=== PATIENT | female | born 1970 | race African-American/Black ===

== ENCOUNTER 2018-01-24 13:02 | Emergency (ER) | payer MEDICAID, SELFPAY ==
[2018-01-24 13:03] VITALS: BP 118/76; PULSE 79; RESP 18; TEMP 36.4; O2SAT 98; BMI 49.0
[2018-01-24 13:57] LABS: Absolute Lymphocyte Count 1.69 X10^3/ul (0.83-4.51); Absolute Neutrophil Count 2.2 X10^3/uL (2.0-7.7); Basophil# 0.01 X10^3/uL; Basophil% 0.2 % (0-1); Eosinophil# 0.04 X10^3/uL; Eosinophils% 0.9 % (0-5); Hematocrit 40.1 % (37-47); Hemoglobin 13.4 g/dl (12.0-15.0); Lymphocyte # 1.69 X10^3/ul (4.0); Lymphocyte % 39.5 % (19-41); Mean Corp Hgb Conc 33.4 g/gl (32-36); Mean Corpuscular Hgb 29.1 pg (27.0-32.0); Mean Corpuscular Volume 87.2 fL (81-99); Mean Platelet Vol. 8.7 fl (6.2-12.0); Monocyte# 0.32 X10^3/uL; Monocyte% 7.5 % (0-10); Neutrophil # 2.22 X10^3/uL (2.7-7.7); Neutrophil % 51.9 % (47-70); Platelet Count 181 K/mm3 (150-450); RBC Distribution Width CV 12.8 % (11.6-14.6); RBC Distribution Width SD 40.9 fl (35.1-43.9); White Blood Count 4.3 K/mm3 (4.4-11.0)
[2018-01-24 13:58] LABS: POSITIVE COUNT NO; POSITIVE DIFFERENTIAL NO; POSITIVE MORPHOLOGY NO
[2018-01-24 14:11] LABS: Anion Gap 8 (5-15); BUN 21 mg/dL (7-18); BUN/Creat Ratio 19.1 RATIO (10-20); Calcium,Total 9.4 mg/dL (8.5-10.1); Chloride 105 mmol/L (98-107); EST Glomerular Filtration Rate 57 mL/min (>60); Est Glom Filt Rate - Afr Amer 69 mL/min (>60); Estimated Creatinine Clearance 46.39 ml/min; Glucose 186 mg/dL (74-106); Sodium Level 139 mmol/L (136-145)
[2018-01-24 14:46] LABS: Mucous, Urine 0 SEEN /hpf (<or=2+); Red Blood Cells-Urine 0 SEEN /hpf (0-5)
[2018-01-24 14:49] LABS: Color, Urine Yellow (Yellow); Glucose, Dipstick Normal (Normal); Ketone-Dipstick Negative (Negative); Leukocyte Esterase-Dipstick 100 /ul (Negative); Nitrite-Dipstick Negative (Negative); Occult Blood-Urine Negative /ul (Negative); Protein-Dipstick 15 mg/dl (Negative); Urine Bilirubin Dipstick Negative (Negative); Urine Clarity Sl. Cloudy (Clear); Urine Urobilinogen Normal (Normal)
[2018-01-24 14:55] LABS: Squamous Epithelial Cells - UA 0-5 SEEN /hpf (5-10); White Blood Cells 0-5 SEEN /hpf (0-5)
[2018-01-24 14:56] LABS: Bacteria RARE /hpf (None Seen)
[2018-01-24 15:02] LABS: Pregnancy, Serum, hCG Quali. NEGATIVE Negative (0-9 Nonpreg)
--- NOTE | 2018-01-24 15:35 | ED.DCSUM_ITS ---
- ER Visit Summary Date of Service: 01/24/18 Chief Complaint: Abdominal cramping History of Present Illness: The patient is a 47 F reports her last regular menstrual cycle was on October 02. Patient states in late October she had very light spotting only. She has had intercourse since that time and is taken to home test were both negative. Patient states she has no overt symptoms of or of menopause. She has noted some abdominal bloating and states that she is currently unable to fit in the jeans that she was wearing previously. She has not followed up with a doctor. Although she complained of abdominal cramping in triage, she tells me that she has had no pain. Physical Examination: Vital signs are unremarkable. Patient sitting upright in bed no acute distress. Heart is regular rate and rhythm. Lung sounds are clear. Abdomen is soft nontender. Active bowel sounds are noted throughout. Back examination reveals no CVA tenderness. Test Results: CBC was a white count of 4.3. Chemistry studies reveal glucose of 186. Creatinine is 1.1. Urinalysis is unremarkable. test is negative. Emergency Department Course and Treatment: Test results were discussed with the patient. At this time I see no evidence of acute abnormalities. She is instructed to follow-up with ANSWERER for further testing. She would prefer to follow-up with [facility] and is therefore referred to Dr. Chan, on-call for [employer] [facility] today. Treatment Plan: [] Disposition: Discharge Impression: Amenorrhea This note was generated with [employer] dictation software. It may contain incorrect words, spelling, and punctuation that were not noted in review of the chart prior to signing ED Disposition - Plan for ED Patient: Disposition: Home or Assisted Living Chief Complaint: Abd Pain Instructions: ED Amenorrhea Referrals: Dave Chan [STAFF PHYSICIAN] - As soon as possible
[2018-01-24 15:52] VITALS: BP 120/74; PULSE 80; RESP 18; O2SAT 98
== END 2018-01-24 15:52 | disposition home or self-care (01) ==
PROVIDERS: Emergency Provider Emergency Medicine; Family Provider Family Medicine
DX: N91.2 Amenorrhea, unspecified (principal); Z86.32 Personal history of gestational diabetes; Z72.0 Tobacco use
CPT/HCPCS: 80048; 81001; 84703; 85025; 99283; A4216

== ENCOUNTER 2023-05-29 10:18 | Emergency (ER) | payer MEDICAID, SELFPAY ==
[2023-05-29 10:19] VITALS: BP 154/85; PULSE 93; RESP 18; TEMP 35.7; O2SAT 99; BMI 40.2
[2023-05-29 11:35] LABS: Absolute Lymphocyte Count 2.08 X10^3/uL (0.83-4.51); Absolute Neutrophil Count 4.7 X10^3/uL (2.0-7.7); Basophil# 0.02 X10^3/uL; Basophil% 0.3 % (0-1); Eosinophil# 0.04 X10^3/uL; Eosinophils% 0.5 % (0-5); Hematocrit 39.8 % (37-47); Hemoglobin 13.1 g/dL (12.0-15.0); Lymphocyte # 2.08 X10^3/ul (0.83-4.51); Lymphocyte % 28.1 % (19-41); Mean Corp Hgb Conc 32.9 g/dL (32-36); Mean Corpuscular Volume 88.1 fL (81-99); Monocyte# 0.54 X10^3/uL; Monocyte% 7.3 % (0-10); NRBC Flagged by Analyzer 0 % (0-5); Neutrophil # 4.72 X10^3/uL (2.7-7.7); Neutrophil % 63.7 % (47-70); Platelet Count 241 K/mm3 (150-450); RBC Distribution Width CV 12.9 % (11.6-14.6); RBC Distribution Width SD 41.3 fl (35.1-43.9); Red Blood Count 4.52 M/mm3 (4.2-5.4); White Blood Count 7.4 K/mm3 (4.4-11.0)
[2023-05-29] MEDS: Ondansetron 4 MG/2 ML Vial IV (11:37)
[2023-05-29] MEDS: Famotidine 20 MG Tablet PO (11:37)
--- NOTE | 2023-05-29 11:40 | EX.ED.DYSGE1 ---
HPI <GARO Esp[place] - Last Filed: 05/29/23 14:50> History of Present Illness Chief Complaint: Nausea/Vomiting Narrative Narrative: Patient presenting today with nausea that she has had intermittently over the past week and a half. She reports that she was struggling with constipation around the same time which seems to have now resolved, she is now having regular bowel movements. She reports that she is also experiencing acid reflux and has been making herself vomit intermittently to try and feel better. She reports that sometimes when she is nauseous she feels a little short of breath but thinks that that is because she is panicking. She denies currently feeling short of breath or having any chest pain. She has not had any fever, chills, abdominal pain, hematemesis, melena/hematochezia, or diarrhea. PMH includes asthma. PFSH <GARO [place] - Last Filed: 05/29/23 14:50> PFSH Home Medications pantoprazole 40 mg tablet,delayed release (Protonix) 40 mg PO DAILY #14 tabs 05/29/23 [Rx Last Taken Unknown] promethazine 12.5 mg tablet 12.5 mg PO TID PRN nausea and vomiting 3 days #10 tabs 05/29/23 [Rx Last Taken Unknown] Allergy/AdvReac Type Severity Reaction Status Date / Time No Known Allergies Allergy Verified 05/29/23 10:21 Social History Smoking Status: Current every day smoker tobacco type: cigarettes ROS <GARO [place] - Last Filed: 05/29/23 14:50> ROS ED Constitutional Constitutional ED: Denies chills or fever(s) Cardiovascular Cardiovascular: Denies chest pain or palpitations Respiratory/Chest Respiratory/Chest: Denies cough or dyspnea Gastrointestinal Gastrointestinal: Reports nausea and vomiting; Denies abdominal pain Genitourinary Genitourinary ED: Denies dysuria, hematuria or urinary urgency Musculoskeletal Musculoskeletal: Denies arthralgias or myalgias Integumentary Denies rash Neurologic Neurologic: Denies weakness EXAM <GARO [place] - Last Filed: 05/29/23 14:50> Physical Exam Const Vital Signs: 05/29/23 10:19 05/29/23 14:10 Temperature 96.2 F L Temperature Source Temporal Pulse Rate 93 82 Respiratory Rate 18 16 Blood Pressure 154/85 H 149/84 H Blood Pressure Mean 108 Pulse Ox 99 98 Oxygen Delivery Method Room Air Positive well nourished, well developed and no apparent distress General Appearance ED: well developed HEENT Reports normocephalic and head/scalp atraumatic Mouth ED: Yes moist mucous membranes normal Eyes PERRL and EOMs intact bilaterally Neck full ROM and supple Chest Wall inspection of chest normal Resp normal respiratory effort and clear to auscultation bilaterally Cardio regular rate and regular rhythm GI soft to palpation, non-tender, non-distended and no masses Back/Spine normal ROM and normal to inspection Extremity normal to inspection and full ROM Neuro oriented x3, CN's II-XII intact bilaterally, moves all extremities, no focal motor deficits and no sensory deficits noted Sensorium / Orientation: awake and alert Psych mental status grossly normal and thought process normal Skin no rashes or lesions noted and no wounds <Dr. Fermín Park MD - Last Filed: 05/29/23 12:47> Physical Exam Const Vital Signs: 05/29/23 10:19 05/29/23 14:10 Temperature 96.2 F L Temperature Source Temporal Pulse Rate 93 82 Respiratory Rate 18 16 Blood Pressure 154/85 H 149/84 H Blood Pressure Mean 108 Pulse Ox 99 98 Oxygen Delivery Method Room Air MDM <GARO [place] - Last Filed: 05/29/23 14:50> [facility] Narrative Medical decision making narrative: Patient presenting today due to intermittent nausea and gastric reflux that she has had over the past week and a half. She is well-appearing and in no acute distress, vitals are unremarkable. She has been taking Zofran with little relief of her symptoms. I think a lot of patient's symptoms could be attributed to her gastric reflux, she reports that she has been burping a lot as well. Labs obtained, potassium 3.4, creatinine 1.26, GFR 58, glucose 164. She does not have a PCP, I will give her a referral for one. She was given Zofran, Pepcid, and Protonix here and reports improvement of her symptoms. She will be given a prescription for Protonix and Phenergan. She will be discharged home in stable condition and is comfortable with plan. She is to follow-up with PCP. I have personally performed a face to face assessment of the patient and have reviewed the YG Note. I performed a substantive portion of the visit including all aspects of the following. My villavicencio findings include: History: Patient presents with a primary complaint of nausea. She states that seem to start when she was constipated couple weeks ago. She is taken some meds and that seems better. She states she just seems nauseated all the time. She does vomit but she states really the only time she vomits is when she puts her finger down her throat trying to make herself vomit to get the nausea better. She is not having abdominal pain. She has never brought up any blood. No blood in the stool. No back or flank pain. No urinary symptoms. She states she was seen at urgent care and started on Zofran. It helps but does not fully take away the symptoms. She also notes that she does have reflux symptoms but sounds like she is not on any meds for that. Exam: Patient awake alert no acute distress. Mucous membranes still look moist. Lungs are clear. No sign of wheezing now. Heart is regular. Abdomen is obese but otherwise benign. I am not getting any tenderness. No mass. She has no CVA tenderness. Medical Decision Making: Patient will be given meds. Basic blood work will be checked. It sounds like patient has not seen a primary doctor in a long time. She has a history of gestational diabetes but was never diagnosed with diabetes. Lab Data Labs: Laboratory Results - last 24 hr 05/29/23 10:50 WBC 7.4 RBC 4.52 Hgb 13.1 Hct 39.8 MCV 88.1 MCH 29.0 MCHC 32.9 RDW Std Deviation 41.3 RDW Coeff of Sanya 12.9 Plt Count 241 MPV 10.0 Immature Gran % (Auto) 0.100 Neut % (Auto) 63.7 Lymph % (Auto) 28.1 Drew % (Auto) 7.3 Eos % (Auto) 0.5 Baso % (Auto) 0.3 Absolute Neuts (auto) 4.7 Absolute Lymphs (auto) 2.08 Nucleated RBC % 0 Sodium 137 Potassium 3.4 L Chloride 102 Carbon Dioxide 28.0 Anion Gap 7 BUN 14 Creatinine 1.26 H Estim Creat Clear Calc 37.94 Est GFR (MDRD) Af Amer 58 L Est GFR (MDRD) Non-Af 48 L BUN/Creatinine Ratio 11.1 Glucose 164 H Calcium 9.3 Lipase 23 <Dr. Fermín Park MD - Last Filed: 05/29/23 12:47> [facility] Narrative Medical decision making narrative: I have personally performed a face to face assessment of the patient and have reviewed the YG Note. I performed a substantive portion of the visit including all aspects of the following. My villavicencio findings include: History: Patient presents with a primary complaint of nausea. She states that seem to start when she was constipated couple weeks ago. She is taken some meds and that seems better. She states she just seems nauseated all the time. She does vomit but she states really the only time she vomits is when she puts her finger down her throat trying to make herself vomit to get the nausea better. She is not having abdominal pain. She has never brought up any blood. No blood in the stool. No back or flank pain. No urinary symptoms. She states she was seen at urgent care and started on Zofran. It helps but does not fully take away the symptoms. She also notes that she does have reflux symptoms but sounds like she is not on any meds for that. Exam: Patient awake alert no acute distress. Mucous membranes still look moist. Lungs are clear. No sign of wheezing now. Heart is regular. Abdomen is obese but otherwise benign. I am not getting any tenderness. No mass. She has no CVA tenderness. Medical Decision Making: Patient will be given meds. Basic blood work will be checked. It sounds like patient has not seen a primary doctor in a long time. She has a history of gestational diabetes but was never diagnosed with diabetes. Lab Data Attestation: I reviewed the patient's lab results. Labs: Laboratory Results - last 24 hr 05/29/23 10:50 WBC 7.4 RBC 4.52 Hgb 13.1 Hct 39.8 MCV 88.1 MCH 29.0 MCHC 32.9 RDW Std Deviation 41.3 RDW Coeff of Sanya 12.9 Plt Count 241 MPV 10.0 Immature Gran % (Auto) 0.100 Neut % (Auto) 63.7 Lymph % (Auto) 28.1 Drew % (Auto) 7.3 Eos % (Auto) 0.5 Baso % (Auto) 0.3 Absolute Neuts (auto) 4.7 Absolute Lymphs (auto) 2.08 Nucleated RBC % 0 Sodium 137 Potassium 3.4 L Chloride 102 Carbon Dioxide 28.0 Anion Gap 7 BUN 14 Creatinine 1.26 H Estim Creat Clear Calc 37.94 Est GFR (MDRD) Af Amer 58 L Est GFR (MDRD) Non-Af 48 L BUN/Creatinine Ratio 11.1 Glucose 164 H Calcium 9.3 Lipase 23 Discharge Plan Triage Chief Complaint: Nausea/Vomiting ED Midlevel Provider: Marge Moore ED Provider: Fermín Park Dx/Rx/DC Orders Clinical Impression: Acid reflux, Nausea & vomiting Instructions: ED GERD (Adult), ED Vomiting (Adult) Prescriptions: New promethazine 12.5 mg tablet 12.5 mg PO TID PRN (Reason: nausea and vomiting) 3 Days Qty: 10 0RF Rx Instructions: 3 doses during day; last dose no later than 4 hr before bedtime pantoprazole [Protonix] 40 mg tablet,delayed release (DR/EC) 40 mg PO DAILY Qty: 14 0RF Primary Care Provider: Care Physician,No Primary Referrals: Sven Moran MD [Med Staff - [employer]] - 5-7 Days Care Physician,No Primary [Primary Care Provider] - Activity Restrictions/Additional Instructions: Please follow-up with the PCP I have referred you to, return for any worsening of your symptoms. Disposition Disposition: Home, Self Care Discharge Date/Time: 05/29/23 14:23
[2023-05-29 11:48] LABS: Anion Gap 7 (5-15); BUN 14 mg/dL (7-18); BUN/Creat Ratio 11.1 RATIO (10-20); Calcium,Total 9.3 mg/dL (8.5-10.1); Chloride 102 mmol/L (98-107); Creatinine, Serum 1.26 mg/dL (0.55-1.02); EST Glomerular Filtration Rate 48 mL/min (>60); Est Glom Filt Rate - Afr Amer 58 mL/min (>60); Estimated Creatinine Clearance 37.94 ml/min; Glucose 164 mg/dL (74-106); Lipase 23 U/L (13-75); Potassium 3.4 mmol/L (3.5-5.1); Sodium Level 137 mmol/L (136-145)
[2023-05-29] MEDS: Pantoprazole Sodium 40 MG Tablet PO (14:09)
[2023-05-29 14:10] VITALS: BP 149/84; PULSE 82; RESP 16; O2SAT 98
== END 2023-05-29 14:23 | disposition home or self-care (01) ==
PROVIDERS: Physician Assistant; Emergency Provider Emergency Medicine; Visit Provider Emergency Medicine
DX: K21.9 Gastro-esophageal reflux disease without esophagitis (principal); F17.210 Nicotine dependence, cigarettes, uncomplicated; R11.2 Nausea with vomiting, unspecified; Z79.899 Other long term (current) drug therapy
CPT/HCPCS: 80048; 83690; 85025; 96374; 99284; A4216; J2405

== ENCOUNTER 2023-07-28 23:02 | Emergency (ER) | payer MEDICAID, SELFPAY ==
[2023-07-28 23:03] VITALS: BP 130/95; PULSE 105; RESP 16; TEMP 36.2; O2SAT 98; BMI 38.0
--- NOTE | 2023-07-28 23:49 | EKG12_ITS ---
Test Reason : Blood Pressure : / mmHG Vent. Rate : 073 BPM Atrial Rate : 073 BPM P-R Int : 140 ms QRS Dur : 074 ms QT Int : 294 ms P-R-T Axes : 039 016 024 degrees QTc Int : 323 ms Normal sinus rhythm with sinus arrhythmia Nonspecific T wave abnormality Abnormal ECG Confirmed by MARICEL ACOSTA, HEAVEN ([id number]), copy editor JÚNIOR RUBY ([id number]) on 07/29/2023 9:37:59 AM Referred By: Confirmed By:HEAVEN CONNELLY MD
--- NOTE | 2023-07-28 23:51 | EDS_ITS ---
HPI History of Present Illness Chief Complaint: Nausea/Vomiting Informant: patient Narrative Narrative: Patient states that her GERD is coming back. She was seen here but 2 months ago for this. I actually saw her at the time. She states when she left she was do ing great. She had mild nausea off and on for the next couple days after that but the meds really helped. Her symptoms had gone away completely. She was on pantoprazole for about 2 weeks. And she has been doing well until about a week and a half ago. She then noticed that she started to get nausea after eating. She would get a little bit of spitting up. She states she has no abdominal or epigastric pain with this. She feels a little soreness in the left lower back. But she states that is related to motion. She thinks that is just a sore back. She states when her GERD acts up she stands and walks a lot more and thinks this irritated the back. She has no history of pancreatitis. No history of problems urinating dysuria or frequency recently. No fevers or chills. Only abdominal surgery is a section 11 years ago. She has tried to get into a primary physician but she is a new patient and she is still waiting for an appointment after she turned in all her paperwork. Currently she is on no medications at all. She states when she eats she gets some discomfort in the mid chest. She occasionally has some taste of acid in her mouth. But her biggest complaint is that it causes nausea. PFSH PFS Home Medications pantoprazole 40 mg tablet,delayed release (Protonix) 40 mg PO DAILY #14 tabs 05/29/23 [Rx Last Taken Unknown] promethazine 12.5 mg tablet 12.5 mg PO TID PRN nausea and vomiting 3 days #10 tabs 05/29/23 [Rx Last Taken Unknown] pantoprazole 40 mg tablet,delayed release 40 mg PO DAILY #30 tabs 07/29/23 [Rx Last Taken Unknown] promethazine 25 mg tablet 25 mg PO Q6H PRN PRN Nausea #10 TABLETS 07/29/23 [Rx Last Taken Unknown] Allergy/AdvReac Type Severity Reaction Status Date / Time No Known Allergies Allergy Verified 07/28/23 23:03 Social History Smoking Status: Current every day smoker tobacco type: cigarettes ROS ROS ED ROS Narrative A complete review of systems was performed and is negative except as documented in the history of present illness. Some specific details below. Constitutional: No recent fevers or chills. No malaise. EYE: No visual complaints or pain. No change in eye color ENT: No difficulty swallowing. But she does get some acid reflux. CV: No chest pain or palpitations. Respiratory: No dyspnea. No hemoptysis. No difficulty taking breaths. GI: Please see history of present illness. : No frequency dysuria or hematuria. Musculoskeletal: No recent trauma. No pains other than the left lower back as in history of present illness. Skin: No rash. Nondiaphoretic. Neuro: No weakness or numbness. No radicular symptoms Endocrine: No polyuria or polydipsia. EXAM Physical Exam Narrative Exam Narrative: CONSTITUTIONAL: Patient is nontoxic in appearance. The patient looks comfortable. HEENT: No notable trauma. Mucous membranes moist. No sinus tenderness. No indication of pain with swallowing. EYES: No conjunctival injection. No proptosis. No icterus. CARDIOVASCULAR: Regular rate. Regular rhythm. No notable murmur. No JVD. RESPIRATORY: No respiratory distress. Breathing is unlabored. No wheezes. No rhonchi. No rales. No pain with a deep breath. GASTROINTESTINAL: Not distended. Bowel sounds are normal. No tenderness. No guarding. No rebound. No palpable mass. No bruit. Patient states her stomach does not hurt at all and pressing on it does not hurt. Overall it is a very benign exam. GENITOURINARY: No tenderness over the bladder. No CVA tenderness. MUSCULOSKELETAL: Atraumatic. No peripheral edema. She does have some mild left paraspinal tenderness at the L3-L5 area. No skin changes. Of note, the patient has not been taking nonsteroidals for this. NEUROLOGICAL: Patient is alert and appropriate. No focal deficit noted. SKIN: No noted rashes. No diaphoresis. PSYCHIATRIC: Patient is calm. Mood is appropriate. Const Vital Signs: 07/28/23 23:03 Temperature 97.2 F L Temperature Source Temporal Pulse Rate 105 H Respiratory Rate 16 Blood Pressure 130/95 H Blood Pressure Mean 106 Pulse Ox 98 Oxygen Delivery Method Room Air MDM MDM MDM Narrative Medical decision making narrative: Patient CBC is normal. Patient's electrolytes do show elevated creatinine at 2.2. This is above her baseline. But she admits she has not been drinking because it causes nausea every time she does. Potassium was just slightly low. This should self- correct. Glucose was also bit up at 147. Liver function tests were normal. Patient's lipase was normal. I went and checked the patient. She states she is feeling much better again. I will get her back on Protonix which worked very well for her. I will write her for a few Phenergan. She will be following up with her primary physician. We discussed reasons to return also. Lab Data Attestation: I reviewed the patient's lab results. Labs: Laboratory Results - last 24 hr 07/29/23 00:07 WBC 5.4 RBC 4.54 Hgb 13.0 Hct 39.1 MCV 86.1 MCH 28.6 MCHC 33.2 RDW Std Deviation 39.9 RDW Coeff of Sanya 12.7 Plt Count 250 MPV 9.6 Immature Gran % (Auto) 0.600 Neut % (Auto) 52.6 Lymph % (Auto) 37.3 Mcminn % (Auto) 7.6 Eos % (Auto) 1.5 Baso % (Auto) 0.4 Absolute Neuts (auto) 2.9 Absolute Lymphs (auto) 2.02 Nucleated RBC % 0 Sodium 138 Potassium 3.3 L Chloride 105 Carbon Dioxide 24.0 Anion Gap 9 BUN 25 H Creatinine 2.20 H Estim Creat Clear Calc 21.73 Est GFR (MDRD) Af Amer 30 L Est GFR (MDRD) Non-Af 25 L BUN/Creatinine Ratio 11.4 Glucose 147 H Calcium 9.5 Total Bilirubin 0.70 AST 16 ALT 24 Alkaline Phosphatase 69 Total Protein 7.8 Albumin 3.9 Globulin 3.9 Albumin/Globulin Ratio 1.0 Lipase 20 EKG Initial EKG: Comments: My independent interpretation of the patient's EKG shows a normal sinus rhythm with overall rate of 73. Mild nonspecific ST-T wave changes. But no sign of acute ST elevation or depression. No ectopy. TN interval, QRS duration and QTc are all normal. Discharge Plan Triage Chief Complaint: Nausea/Vomiting ED Provider: Fermín Park Dx/Rx/DC Orders Clinical Impression: Gastroesophageal reflux disease Instructions: ED GERD (Adult) Prescriptions: New pantoprazole 40 mg tablet,delayed release (DR/EC) 40 mg PO DAILY Qty: 30 1RF promethazine [promethazine] 25 mg tablet 25 mg PO Q6H PRN PRN (Reason: Nausea) Qty: 10 0RF No Action promethazine 12.5 mg tablet 12.5 mg PO TID PRN (Reason: nausea and vomiting) 3 Days Qty: 10 0RF Rx Instructions: 3 doses during day; last dose no later than 4 hr before bedtime pantoprazole [Protonix] 40 mg tablet,delayed release (DR/EC) 40 mg PO DAILY Qty: 14 0RF Primary Care Provider: Care Physician,No Primary Referrals: Care Physician,No Primary [Primary Care Provider] - Activity Restrictions/Additional Instructions: Follow-up with your primary physician as planned. Disposition Disposition: Home, Self Care
[2023-07-29] MEDS: 0.9% Normal Saline (1000mL) 1,000 ML 1000 ML IV (00:14)
[2023-07-29] MEDS: Ondansetron 4 MG/2 ML Vial IV ×2 (00:16→05:11)
[2023-07-29] MEDS: Pantoprazole Sodium 80 MG in 0.9% Normal Saline (50mL Bag) 15 ML 420 MG IV BOLUS (00:16)
[2023-07-29 00:30] LABS: Absolute Lymphocyte Count 2.02 X10^3/uL (0.83-4.51); Absolute Neutrophil Count 2.9 X10^3/uL (2.0-7.7); Basophil# 0.02 X10^3/uL; Basophil% 0.4 % (0-1); Eosinophil# 0.08 X10^3/uL; Eosinophils% 1.5 % (0-5); Hematocrit 39.1 % (37-47); Lymphocyte # 2.02 X10^3/ul (0.83-4.51); Lymphocyte % 37.3 % (19-41); Mean Corp Hgb Conc 33.2 g/dL (32-36); Mean Corpuscular Hgb 28.6 pg (27.0-32.0); Mean Corpuscular Volume 86.1 fL (81-99); Mean Platelet Vol. 9.6 fl (6.2-12.0); Monocyte# 0.41 X10^3/uL; Monocyte% 7.6 % (0-10); NRBC Flagged by Analyzer 0 % (0-5); Neutrophil # 2.86 X10^3/uL (2.7-7.7); Neutrophil % 52.6 % (47-70); Platelet Count 250 K/mm3 (150-450); RBC Distribution Width CV 12.7 % (11.6-14.6); RBC Distribution Width SD 39.9 fl (35.1-43.9); Red Blood Count 4.54 M/mm3 (4.2-5.4); White Blood Count 5.4 K/mm3 (4.4-11.0)
[2023-07-29 00:39] LABS: AST(SGOT) 16 U/L (15-37); Alanine Aminotransfer ALT/SGPT 24 U/L (13-56); Albumin, Serum 3.9 g/dL (3.2-5.0); Alkaline Phosphatase 69 U/L (45-117); Anion Gap 9 (5-15); BUN 25 mg/dL (7-18); BUN/Creat Ratio 11.4 RATIO (10-20); Calcium,Total 9.5 mg/dL (8.5-10.1); Chloride 105 mmol/L (98-107); EST Glomerular Filtration Rate 25 mL/min (>60); Est Glom Filt Rate - Afr Amer 30 mL/min (>60); Estimated Creatinine Clearance 21.73 ml/min; Globulin 3.9 g/dL (2.2-4.2); Glucose 147 mg/dL (74-106); Lipase 20 U/L (13-75); Potassium 3.3 mmol/L (3.5-5.1); Protein, Total 7.8 g/dL (6.4-8.2); Sodium Level 138 mmol/L (136-145)
[2023-07-29 02:23] VITALS: BP 145/78
[2023-07-29] MEDS: proMETHazine 25 MG/ML Syringe 12.5 MG IM (02:25)
--- NOTE | 2023-07-29 02:27 | ED.RN ---
pt was up to bathroom to void, pt then back to bed c/o gonna pass out pt hyperventilating and instructed to slow breathing, pt bp 145/78,respirations 28, pt rocking back and forth in bed and groaning. pt medicated with phenergan 12.5 mg i.m.
--- NOTE | 2023-07-29 02:56 | CT_ITS ---
EXAM: CT abdomen and pelvis without contrast HISTORY: Recurrent nausea vomiting TECHNIQUE: No intravenous contrast. A radiation dose optimization technique was used for this scan. COMPARISON: None. LIMITATIONS: None. LOWER CHEST: Normal. LIVER: Normal. GALLBLADDER: Normal. BILE DUCTS: Normal. PANCREAS: Normal. SPLEEN: Normal. ADRENAL GLANDS: Normal. KIDNEYS/URETERS/BLADDER: Right pelvic kidney. No obstructing stones or hydronephrosis. AORTA: Normal caliber. BOWEL/MESENTERY: No small bowel obstruction. No evidence of colitis. APPENDIX: Normal. PERITONEUM: Normal. REPRODUCTIVE ORGANS: Normal. BONES/SOFT TISSUES: No acute fracture. OTHER: None. CONCLUSION: No small bowel obstruction. Pelvic kidney. Electronically Signed: Nacho Dominguez MD at 4:05 EST , CT/Abdomen/Pelvis without Cont IMPRESSION: undefined
[2023-07-29] MEDS: 0.9% Normal Saline (1000mL) 1,000 ML 999 ML IV (03:47)
[2023-07-29 05:16] VITALS: BP 152/78
[2023-07-29 05:17] VITALS: BP 152/78
== END 2023-07-29 05:18 | disposition home or self-care (01) ==
PROVIDERS: Emergency Provider Emergency Medicine; Visit Provider Emergency Medicine
DX: K21.9 Gastro-esophageal reflux disease without esophagitis (principal); F17.210 Nicotine dependence, cigarettes, uncomplicated; Z79.899 Other long term (current) drug therapy
CPT/HCPCS: 74176; 80053; 83690; 85025; 93005; 96361; 96365; 96366; 96372; 96375; 99283; J7030; A4216; J2405; J3490

== ENCOUNTER 2023-09-25 21:08 | Emergency (ER) | payer MEDICAID, SELFPAY ==
[2023-09-25 21:10] VITALS: BP 121/103; PULSE 76; RESP 18; TEMP 36.3; O2SAT 100; BMI 35.4
--- NOTE | 2023-09-25 21:42 | EX.ED.VIS.EY ---
HPI History of Present Illness Chief Complaint: Eye Problem Informant: patient Narrative Narrative: 53-year-old female presenting to the emergency room with a chief complaint of acid reflux. Patient states that in May she states she was diagnosed with acid reflux and was started on pantoprazole. This was through the emergency department and she subsequently came back to the emergency department when she had run out of her pantoprazole noting that her symptoms have returned. Patient states that she does pretty good for about the first week to 2 weeks after running out of the medication then she gets nausea which makes her woozy. She notes difficulty with some foods. Dyspepsia. She has been trying to get into a primary care doctor's office and is on the new patient list. She also notes that her right eyelid appears swollen and wonders if she has an allergy. She denies any vision changes. No drainage from the eye. [facility] Medical History (Updated 09/25/23 @ 22:[address] Alejandro Burch DO) Chronic GERD Home Medications pantoprazole 40 mg tablet,delayed release (Protonix) 40 mg PO DAILY #14 tabs 05/29/23 [Rx Last Taken Unknown] promethazine 12.5 mg tablet 12.5 mg PO TID PRN nausea and vomiting 3 days #10 tabs 05/29/23 [Rx Last Taken Unknown] pantoprazole 40 mg tablet,delayed release 40 mg PO DAILY #30 tabs 07/29/23 [Rx Last Taken Unknown] promethazine 25 mg tablet 25 mg PO Q6H PRN PRN Nausea #10 TABLETS 07/29/23 [Rx Last Taken Unknown] ondansetron 4 mg disintegrating tablet 4 mg PO Q6H PRN PRN Nausea #15 tabs 09/25/23 [Rx Last Taken Unknown] pantoprazole 40 mg tablet,delayed release 40 mg PO DAILY #30 tabs 09/25/23 [Rx Last Taken Unknown] Allergy/AdvReac Type Severity Reaction Status Date / Time No Known Allergies Allergy Verified 09/25/23 21:10 Social History Smoking Status: Current every day smoker tobacco type: cigarettes ROS ROS ED Constitutional Constitutional ED: Denies chills, fever(s) or weight loss Eyes Eyes: Reports other Details: Left eyelid swelling ; Denies blurry vision, change in vision or diplopia ENT ENT ED: Denies ear pain, rhinorrhea or sore throat Cardiovascular Cardiovascular: Denies chest pain, orthopnea, palpitations or racing heartbeat Respiratory/Chest Respiratory/Chest: Denies cough, dyspnea or orthopnea Gastrointestinal Gastrointestinal: Reports abdominal pain and nausea; Denies diarrhea or vomiting Genitourinary Genitourinary ED: Denies dysuria, hematuria or urinary frequency Musculoskeletal Musculoskeletal: Denies arthralgias or myalgias Integumentary Denies abscess or rash Neurologic Neurologic: Denies headache(s) or weakness Psychiatric Psychiatric: Denies anxiety, depression, suicidal ideation or suicidal thoughts Endocrine Endocrinology: Denies polydipsia, polyphagia or polyuria Allergic/Immunologic Allergic/Immunologic ED: Denies mouth swelling, tongue swelling or urticaria EXAM Physical Exam Const Vital Signs: 09/25/23 21:10 Temperature 97.3 F L Temperature Source Temporal Pulse Rate 76 Respiratory Rate 18 Blood Pressure 121/103 H Blood Pressure Mean 109 Pulse Ox 100 Positive well nourished and well developed General Appearance ED: well developed HEENT Reports normocephalic, head/scalp atraumatic and moist mucous membranes Eyes PERRL and EOMs intact bilaterally Eyes Narrative: Patient has a very obvious stye on the lid margin of the left upper medial lid. The upper lid itself is slightly edematous and mild the erythematous. The conjunctiva is not injected. I do not appreciate any crusting of the eyelids. No hyphema. Neck no lymphadenopathy, supple and no JVD Resp normal respiratory effort and clear to auscultation bilaterally Cardio regular rate, regular rhythm and no murmurs GI normal to inspection, nondistended, normoactive bowel sounds and non-tender Palpation: soft Back/Spine no CVA tenderness and normal ROM Extremity normal to inspection General Extremety ED: Negative for edema General Extremity: Negative for edema Neuro oriented x3 and CN's II-XII intact bilaterally Sensorium / Orientation: alert Motor Exam: strength 5/5 throughout Psych mental status grossly normal Mood & Affect: Negative for depressed or tearful Skin no rashes or lesions noted and no wounds MDM MDM MDM Narrative Medical decision making narrative: For the stye the patient was instructed on warm compresses gentle massage and some erythromycin ophthalmic ointment. I do not feel strongly that erythromycin ophthalmic ointment is needed but she would like to try it and it may help soften the area and allow for some expression of pus. She was given return instructions regarding periorbital cellulitis and worsening symptoms. She notes understanding. As far as the reflux the patient will be started back on her pantoprazole. I will write for some Zofran for the nausea. She should continue to try to get in with primary care History & Record Review Discussion w/independent historian: Patient Additional record(s) reviewed:: Prior ED visit Discharge Plan Triage Chief Complaint: Eye Problem Other Complaint: General Illness ED Provider: Alejandro Burch Dx/Rx/DC Orders Clinical Impression: Medication refill, Stye, Chronic GERD, Nausea Instructions: What Is GERD?, ED Stye Prescriptions: New pantoprazole 40 mg tablet,delayed release (DR/EC) 40 mg PO DAILY Qty: 30 1RF ondansetron [ondansetron] 4 mg tablet,disintegrating 4 mg PO Q6H PRN PRN (Reason: Nausea) Qty: 15 0RF No Action pantoprazole 40 mg tablet,delayed release (DR/EC) 40 mg PO DAILY Qty: 30 1RF promethazine [promethazine] 25 mg tablet 25 mg PO Q6H PRN PRN (Reason: Nausea) Qty: 10 0RF promethazine 12.5 mg tablet 12.5 mg PO TID PRN (Reason: nausea and vomiting) 3 Days Qty: 10 0RF Rx Instructions: 3 doses during day; last dose no later than 4 hr before bedtime pantoprazole [Protonix] 40 mg tablet,delayed release (DR/EC) 40 mg PO DAILY Qty: 14 0RF Primary Care Provider: Care Physician,No Primary Referrals: Care Physician,No Primary [Primary Care Provider] - Activity Restrictions/Additional Instructions: Continue to try to follow-up with your new primary care doctor. Erythromycin eye ointment is to be applied to the inner lower lid 4 times a day for the next 7 days. Use warm compresses for the left eye. Monitor for redness changes in vision. Disposition Disposition: Home, Self Care Discharge Date/Time: 09/25/23 21:53
--- OUTSIDE RECORDS SUMMARY | 2023-09-25 21:44 | XMS RPT_ITS | CCD ---
Author Name Unknown Address [address] [place] [address] Organization [facility] Care Team Providers Care Dry Plasterer Name Role Phone Unavailable Primary Care Provider AIDAN Church Referring Unavailable Medications Current Medications Medication Drug Class(es) Dates Sig (Normalized) Sig (Original) ondansetron 4 mg disintegrating oral tablet (1 source) Serotonin-3 Receptor Antagonist Start: 05-24-2023 End: 05-31-2023 take 1 tablet by mouth every six hours as needed for nausea and nausea ondansetron orally disintegrating (ZOFRAN ODT) 4 mg disintegrating tablet Indications: Nausea Take 1 tablet by mouth every 6 hours as needed for nausea/vomiting for up to 7 days. 28 tablet 0 05/24/2023 05/31/2023 Active Completed/Discontinued Medications Medication Drug Class(es) Dates Sig (Normalized) Sig (Original) [id number] 200 actuat albuterol 0.09 mg/actuat metered dose inhaler (1 source) beta2-Adrenergic Agonist Start: 01-19-2019 take 2 puff(s) by inhalation every six hours as needed albuterol HFA (PROVENTIL HFA, VENTOLIN HFA) 90 mcg/actuation inhaler Indications: Bronchitis Inhale 2 Puffs as instructed every 6 hours as needed. 1 Inhaler 0 01/19/2019 Active Problems Active Problems Problem Classification Problem Date Documented Da te Episodic/Chronic Nausea and vomiting (1 source) Nausea; Translations: [Nausea] 05-24-2023 Episodic Other complications of (1 source) Maternal obesity complicating , childbirth and the puerperium, antepartum; Translations: [Obesity complicating , unspecified trimester] Onset: 10-25-2011 10-25-2011 Chronic Other gastrointestinal disorders (1 source) Acute constipation; Translations: [Constipation, unspecified] 05-24-2023 Episodic Other gastrointestinal disorders (1 source) Constipation, unspecified; Translations: [Acute constipation] Onset: 05-24-2023 Episodic Past or Other Problems Problem Classification Problem Date Documented Da te Episodic/Chronic Diabetes or abnormal glucose tolerance complicating ; childbirth; or the puerperium (1 source) Gestational diabetes mellitus; Translations: [Gestational diabetes mellitus in , unspecified control] Onset: 10-25-2011 10-25-2011 Episodic Other complications of (1 source) Supervision of other high risk pregnancies, unspecified trimester; Translations: [Supervision of other high-risk ] Onset: 10-25-2011 10-25-2011 Episodic Results Test Name Value Interpretation Reference Range Facil ity Vital Signs Date Time Vital Sign Value Performing Clinician Lyly gomez 05-24-2023 11:45-0400 Body temperature 97.59 [degF] Aidan Mcclelland APRN.COMPENSATION PROGRAMS MANAGER Work Phone: [facility] 05-24-2023 11:45-0400 Body weight 94.71 kg Aidan Mcclelland APRN.COMPENSATION PROGRAMS MANAGER Work Phone: [facility] 05-24-2023 11:45-0400 Diastolic blood pressure 84 mm[Hg] Aidan Mcclelland APRN.COMPENSATION PROGRAMS MANAGER Work Phone: [facility] 05-24-2023 11:45-0400 Heart rate 70 /min Aidan Mcclelland APRN.COMPENSATION PROGRAMS MANAGER Work Phone: [facility] 05-24-2023 11:45-0400 Respiratory rate 18 /min Aidan Mcclelland APRN.COMPENSATION PROGRAMS MANAGER Work Phone: [facility] 05-24-2023 11:45-0400 SaO2% (BldA) [Mass fraction] 96 % Aidan Mcclelland APRN.COMPENSATION PROGRAMS MANAGER Work Phone: [facility] 05-24-2023 11:45-0400 Systolic blood pressure 127 mm[Hg] Aidan Mcclelland APRN.COMPENSATION PROGRAMS MANAGER Work Phone: [facility] Encounters Encounter Date Encounter Type Care Provider Facility Start: 05-24-2023 End: 05-24-2023 ambulatory AIDAN MCCLELLAND Facility:[facility] Start: 05-24-2023 End: 05-24-2023 Patient encounter procedure Aidan Mcclelland APRN.CNP Work Phone: [facility] Plan of Treatment Date Care Activity Detail Author Start: 04-29-2023 Influenza vaccination Influenza Vacc ine (#1) [facility] Start: 08-29-2022 Depression Assessment Depression Ass essment [facility] Start: 2022 Shingrix Vaccine (1 of 2) Shingrix V accine (1 of 2) [facility] Start: 2017 Cologuard (FIT-DNA) Cologuard (FIT-D NA) [facility] Start: 2017 Colonoscopy Colonoscopy [facility] Start: 2017 Colorectal Cancer Screening Colorectal Cancer Screening [facility] Start: [address] COLONOGRAPHY [facility] Start: 2017 Diabetes Screening Diabetes Screenin g [facility] Start: 2017 Fecal Occult Blood Fecal Occult Bloo d [facility] Start: 2017 Lipid 1996 panel - S mickey or Plasma Lipid Screening [facility] Start: 2017 SIGMOIDOSCOPY SIGMOIDOSCOPY [facility] Start: 05-07-2016 Pap Testing Pap Testing [facility] Start: 2012 Mammography Mammogram Screening [facility] Start: 2002 HPV Testing HPV Testing [facility] Start: 08-10-1999 Urine microalbumin profile DTa P,Tdap,Td Vaccine (6 - Tdap) [facility] Start: 1990 Hepatitis C Screening Hepatitis C Sc reening [facility] Start: 1978 Pneumococcal vaccination Pneum ococcal Vaccine (1 - PCV) [facility] Start: 1972 Covid-19 Vaccine (#1) Covid-19 Vacci ne (#1) [facility] Start: 1972 Hepatitis B Vaccine (1 of 3 - 3-dose series) Hepatitis B Vaccine (1 of 3 - 3-dose series) [facility] Immunizations Immunization Date Immunization Notes Care Provider Julia de leon 08-10-1989 diphtheria and tetan us toxoids, adsorbed for pediatric use Aidan Mcclelland APRN.CNP Work Phone: [facility] 08-10-1989 trivalent poliovirus vaccine, live, oral Aidan Dustin WIRELESS TECHNICIAN.COMPENSATION PROGRAMS MANAGER Work Phone: [facility] 05-31-1984 measles, mumps and rubella virus vaccine Aidan Dustin WIRELESS TECHNICIAN.COMPENSATION PROGRAMS MANAGER Work Phone: [facility] 01-27-1977 diphtheria, tetanus toxoids and acellular pertussis vaccine Aidan Dustin WIRELESS TECHNICIAN.COMPENSATION PROGRAMS MANAGER Work Phone: [facility] 01-27-1977 trivalent poliovirus vaccine, live, oral Aidan Dustin WIRELESS TECHNICIAN.COMPENSATION PROGRAMS MANAGER Work Phone: [facility] 04-29-1976 diphtheria, tetanus toxoids and acellular pertussis vaccine Aidan Dustin WIRELESS TECHNICIAN.COMPENSATION PROGRAMS MANAGER Work Phone: [facility] 04-29-1976 trivalent poliovirus vaccine, live, oral Aidan Dustin WIRELESS TECHNICIAN.COMPENSATION PROGRAMS MANAGER Work Phone: [facility] 01-27-1975 diphtheria, tetanus toxoids and acellular pertussis vaccine Aidan Dustin WIRELESS TECHNICIAN.COMPENSATION PROGRAMS MANAGER Work Phone: [facility] 01-27-1975 measles, mumps and rubella virus vaccine Aidan Dustin WIRELESS TECHNICIAN.COMPENSATION PROGRAMS MANAGER Work Phone: [facility] 01-27-1975 trivalent poliovirus vaccine, live, oral Aidan Dustin WIRELESS TECHNICIAN.COMPENSATION PROGRAMS MANAGER Work Phone: [facility] 11-27-1974 diphtheria, tetanus toxoids and acellular pertussis vaccine Aidan Dustin WIRELESS TECHNICIAN.COMPENSATION PROGRAMS MANAGER Work Phone: [facility] Payers Date Payer Category Payer Medicaid [facility] MEDICAID [facility] COMMUN[employer] PLAN MEDICAID OF [place] [id number] 2022-Present [phone] [address] [place] [address] Medicaid [id number] 2022 Medicaid [id number] Social History Date Type Detail Facility Start: 05-24-2023 Tobacco smoking stat us NHIS Smokes tobacco daily [facility] History of tobacco use Cigarette Smoker [facility] Start: 05-24-2023 Tobacco use and exposure Smokeless tobacco non-user [facility] Start: 05-24-2023 Alcohol intake Current drinke r of alcohol (finding) [facility] Start: 08-06-2020 End: 05-24-2023 History of Social function [facility] Start: 08-06-2020 End: 05-24-2023 Tobacco use panel [facility] National Score (1-10 0), lower number is lower risk Not on file [facility] Start: 05-24-2023 Tobacco Comment 5 cigarettes per day [facility] Start: 10-22-2009 Alcohol Comment OCCASIONALLY B UT NOT WHILE [facility] Start: 1972 Sex Assigned At Not on file [facility] Progress note 05-24-2023 Note Date & Type Note Facility 05-24-2023 Note HNO ID: [id number] Author: Rach Reid RT(R) Service: Radiology Author Type: Technologist Type: Progress Notes Filed: 05/24/2023 12:16 PM Note Text: Radiology Service Progress Note PATIENT NAME: Karina Shahid DATE OF SERVICE: May 24, 2023 TIME: 12:03 PM PATIENT IDENTITY VERIFICATION COMPLETED USING TWO (2) IDENTIFIERS: Name and Date of confirmed by patient verbally. FALL SCREENING: Has the patient had 2 falls in the last year or 1 fall with injury or currently using an Ambulatory Assistive Device (Walker, Cane, Wheelchair, Crutches, etc.)? No PATIENT GENDER DATA: Female. status: : No status: NO. PATIENT RELEVANT IMPLANT DATA REVIEWED: Yes RADIOLOGY DEPARTMENT: General X-ray: Exam(s) Completed: Abdomen X-Ray: Abdomen PERIPHERAL IV DATA: Not applicable SIGNED BY: RT Onesimo(R) May 24, 2023 12:03 PM [facility] Progress note 05-24-2023 Note Date & Type Note Facility 05-24-2023 Note HNO ID: [id number] Author: Aidan Mcclelland APRN.COMPENSATION PROGRAMS MANAGER Service: ? Author Type: Nurse Practitioner Type: Progress Notes Filed: 05/24/2023 12:43 PM Note Text: Subjective Came in with complaints of nausea and vomiting started yesterday evening. Patient also said she has been constipated on and off for a week. Patient says she has not had a decent bowel movement. Patient says she ate a lot of cheese a week before and that usually will do it. Patient denies any abdominal pain at this time. The history is provided by the patient. No station baggage porter was used. Review of Systems Constitutional: Negative. Skin: Negative. Objective Physical Exam Constitutional: Appearance: Normal appearance. Pulmonary: Effort: Pulmonary effort is normal. Abdominal: General: Abdomen is flat. Palpations: Abdomen is soft. Tenderness: There is no abdominal tenderness. Neurological: Mental Status: She is alert. PAST MEDICAL HISTORY Diagnosis Date Diabetes, gestational NEGATIVE MEDICAL HISTORY PAST SURGICAL HISTORY Procedure Laterality Date SECTION HX PAST SURGICAL HISTORY OF LEFT EYE SURGERY ALLERGIES Patient has no known allergies. MEDICATIONS benzonatate (TESSALON PERLES) 100 mg capsule Take 2 capsules by mouth three times daily as needed. (Patient not taking: Reported on 05/24/2023) albuterol HFA (PROVENTIL HFA, VENTOLIN HFA) 90 mcg/actuation inhaler Inhale 2 Puffs as instructed every 6 hours as needed. (Patient not taking: Reported on 05/24/2023) cetirizine (ZYRTEC) 10 mg tablet Take 1 tablet by mouth once daily. (Patient not taking: Reported on 05/24/2023) FAMILY HISTORY Problem Relation Age of Onset Alcohol/Drug Maternal Uncle DRUG Alcohol/Drug Maternal Grandfather ETOH COPD Maternal Grandfather Breast Cancer Maternal Aunt Cancer Maternal Grandfather LUNG CANCER Diabetes Maternal Grandmother Diabetes Maternal Grandfather Social History Tobacco Use Smoking status: Every Day Types: Cigarettes Smokeless tobacco: Never Tobacco comments: 5 cigarettes per day Substance Use Topics Alcohol use: Yes Comment: OCCASIONALLY BUT NOT WHILE Drug use: No ASSESSMENT/PLAN: 1. Acute constipation - ICD9: 564.00, ICD10: K59.00 (primary diagnosis) - XR ABDOMEN 1V SUPINE * * * * Physician Interpretation * * * * EXAM TITLE: XR ABDOMEN 1V SUPINE EXAM DATE/TIME: 05/24/2023 12:16 PM COMPARISON: None. CLINICAL INDICATION/HISTORY: Constipation. TECHNIQUE: AP views of the abdomen are presented. FINDINGS: No abnormally dilated bowel loops identified. Small amount of stool and gas demonstrated in the large bowel loops. No abnormal radiopaque opacities projecting over the kidneys. There are phleboliths in the pelvis. The spine shows degenerative changes. IMPRESSION IMPRESSION: Nonobstructive bowel gas pattern. Real Estate Marketing Coordinator: DONAVAN Transcribe Date/Time: May 24 2023 12:18P Dictated by : KAMALA COLE MD 2. Nausea - ICD9: 787.02, ICD10: R11.0 - ONDANSETRON 4 MG DISINTEGRATING TABLET Aidan Mcclelland APRN.RITA [facility] History of Present illness Narrative 05-24-2023 Aidan Mcclelland APRN.RITA - 05/24/2023 11:50 AM EDT Note Date & Type Note Facility 05-24-2023 History of Presen t illness Narrative Subjective Came in with complaints of nausea and vomiting started yesterday evening. Patient also said she has been constipated on and off for a week. Patient says she has not had a decent bowel movement. Patient says she ate a lot of cheese a week before and that usually will do it. Patient denies any abdominal pain at this time. The history is provided by the patient. No station baggage porter was used. Review of Systems Constitutional: Negative. Skin: Negative. Objective Physical Exam Constitutional: Appearance: Normal appearance. Pulmonary: Effort: Pulmonary effort is normal. Abdominal: General: Abdomen is flat. Palpations: Abdomen is soft. Tenderness: There is no abdominal tenderness. Neurological: Mental Status: She is alert. PAST MEDICAL HISTORY Diagnosis Date Diabetes, gestational NEGATIVE MEDICAL HISTORY PAST SURGICAL HISTORY Procedure Laterality Date SECTION HX PAST SURGICAL HISTORY OF LEFT EYE SURGERY ALLERGIES Patient has no known allergies. MEDICATIONS benzonatate (TESSALON PERLES) 100 mg capsule Take 2 capsules by mouth three times daily as needed. (Patient not taking: Reported on 05/24/2023) albuterol HFA (PROVENTIL HFA, VENTOLIN HFA) 90 mcg/actuation inhaler Inhale 2 Puffs as instructed every 6 hours as needed. (Patient not taking: Reported on 05/24/2023) cetirizine (ZYRTEC) 10 mg tablet Take 1 tablet by mouth once daily. (Patient not taking: Reported on 05/24/2023) FAMILY HISTORY Problem Relation Age of Onset Alcohol/Drug Maternal Uncle DRUG Alcohol/Drug Maternal Grandfather ETOH COPD Maternal Grandfather Breast Cancer Maternal Aunt Cancer Maternal Grandfather LUNG CANCER Diabetes Maternal Grandmother Diabetes Maternal Grandfather Social History Tobacco Use Smoking status: Every Day Types: Cigarettes Smokeless tobacco: Never Tobacco comments: 5 cigarettes per day Substance Use Topics Alcohol use: Yes Comment: OCCASIONALLY BUT NOT WHILE Drug use: No ASSESSMENT/PLAN: 1. Acute constipation - ICD9: 564.00, ICD10: K59.00 (primary diagnosis) - XR ABDOMEN 1V SUPINE * * * * Physician Interpretation * * * * EXAM TITLE: XR ABDOMEN 1V SUPINE EXAM DATE/TIME: 05/24/2023 12:16 PM COMPARISON: None. CLINICAL INDICATION/HISTORY: Constipation. TECHNIQUE: AP views of the abdomen are presented. FINDINGS: No abnormally dilated bowel loops identified. Small amount of stool and gas demonstrated in the large bowel loops. No abnormal radiopaque opacities projecting over the kidneys. There are phleboliths in the pelvis. The spine shows degenerative changes. IMPRESSION IMPRESSION: Nonobstructive bowel gas pattern. Real Estate Marketing Coordinator: DONAVAN Transcribe Date/Time: May 24 2023 12:18P Dictated by : KAMALA COLE MD 2. Nausea - ICD9: 787.02, ICD10: R11.0 - ONDANSETRON 4 MG DISINTEGRATING TABLET Aidan Mcclelland APRN.COMPENSATION PROGRAMS MANAGER documented in this encounter [facility] Evaluation note Note Date & Type Note Facility documented in this encounter [facility] Reason for referral (narrative) Diagnostic Procedure Only (Urgent) - Closed Note Date & Type Note Facility Referral ID Status Reason Start Date Expiration Date V isits Requested Visits Authorized [id number] Closed Auto-Generate d Referral 05/24/2023 06/22/2024 1 1 [facility] Summary Purpose Family History No Family History Records Found Advance Directives No Advanced Directives Records Found Additional Source Comments Source Comments (unrecognize d section and content) In the event this informatio n is protected by the Federal Confidentiality of Alcohol and Drug Abuse Patient Records regulations: The Federal rules restrict any use of the information to criminally investigate or prosecute any alcohol or drug abuse patient.[facility] Reason for Visit (unrecogniz ed section and content) INFORMATION SOURCE (unrecogn ized section and content) FOR RECORDS PERTAINING TO PATIENTS WHO ARE OR HAVE BEEN ENROLLED IN A CHEMICAL DEPENDENCY/SUBSTANCEABUSE PROGRAM, SOME INFORMATION MAY BE OMITTED. This clinical summary was aggregated from multiple sources. Caution should be exercised in using it in the provision of clinical care. This summary normalizes information from multiple sources, and as a consequence, information in this document may materially change the coding, format and clinical context of patient data. In addition, data may be omitted in some cases. CLINICAL DECISIONS SHOULD BE BASED ON THE PRIMARY CLINICAL RECORDS. [facility]. provides no warranty or guarantee of the accuracy or completeness of information in this document.
[2023-09-25] MEDS: Ondansetron ODT 4 MG Tablet PO (21:46)
[2023-09-25] MEDS: Pantoprazole Sodium 40 MG Tablet PO (21:46)
[2023-09-25] MEDS: Erythromycin Base 1 OPTH.TUBE 1 APPLIC LEFT EYE (21:49)
== END 2023-09-25 21:53 | disposition home or self-care (01) ==
PROVIDERS: Emergency Provider Emergency Medicine; Visit Provider Emergency Medicine
DX: K21.9 Gastro-esophageal reflux disease without esophagitis (principal); Z76.0 Encounter for issue of repeat prescription; H00.014 Hordeolum externum left upper eyelid; F17.210 Nicotine dependence, cigarettes, uncomplicated; Z79.899 Other long term (current) drug therapy
CPT/HCPCS: 99284

== ENCOUNTER 2023-09-26 09:00 | Emergency (ER) | payer MEDICAID, SELFPAY ==
[2023-09-26 09:01] VITALS: BP 136/78; PULSE 96; RESP 14; TEMP 36.7; O2SAT 100; BMI 34.6
--- NOTE | 2023-09-26 09:25 | EX.ED.DYSGE1 ---
HPI History of Present Illness Chief Complaint: General Illness Informant: patient Narrative Narrative: Presents to ED with reoccurring lower back pressure and persistent nausea for 3 days. Denies radicular pain down the legs. Denies vomiting. Due to nausea has not been eating. Normal bowel movements every 2 days with out any blood. Started having symptoms 4 months ago she states was seen initially 4 months ago has been seen 2 times since. She is here yesterday evening. States she was diagnosed with GERD. She was refilled on her Zofran and pantoprazole. She was given her Zofran yesterday. She states no testing done yesterday. Persistent symptoms into today. She is referred to her primary doctor as she sent paperwork pending appointment. She has not seen a GI doctor. She has not had upper endoscopy or colonoscopy in the past. Denies any allergies. She states she had CT scan possibly in July. Denies urinary symptoms. Prior similar symptoms: [facility] Medical History Chronic GERD Home Medications pantoprazole 40 mg tablet,delayed release (Protonix) 40 mg PO DAILY #14 tabs 05/29/23 [Rx Last Taken Unknown] promethazine 12.5 mg tablet 12.5 mg PO TID PRN nausea and vomiting 3 days #10 tabs 05/29/23 [Rx Last Taken Unknown] pantoprazole 40 mg tablet,delayed release 40 mg PO DAILY #30 tabs 07/29/23 [Rx Last Taken Unknown] promethazine 25 mg tablet 25 mg PO Q6H PRN PRN Nausea #10 TABLETS 07/29/23 [Rx Last Taken Unknown] ondansetron 4 mg disintegrating tablet 4 mg PO Q6H PRN PRN Nausea #15 tabs 09/25/23 [Rx Last Taken Unknown] pantoprazole 40 mg tablet,delayed release 40 mg PO DAILY #30 tabs 09/25/23 [Rx Last Taken Unknown] metoclopramide HCl 10 mg tablet (Reglan) 10 mg PO Q6H PRN nausea and vomiting #14 tabs 09/26/23 [Rx Last Taken Unknown] oxycodone-acetaminophen 5 mg-325 mg tablet 1 tab PO Q6H PRN PRN Pain 3 days #12 TABLETS 09/26/23 [Rx Last Taken Unknown] Allergy/AdvReac Type Severity Reaction Status Date / Time No Known Allergies Allergy Verified 09/26/23 09:03 Social History Smoking Status: Current every day smoker tobacco type: cigarettes ROS ROS ED Constitutional Constitutional ED: Denies chills, fever(s) or sweats Eyes Eyes: Denies change in vision ENT ENT ED: Denies dysphagia or sore throat Cardiovascular Cardiovascular: Denies chest pain, leg edema, palpitations or racing heartbeat Respiratory/Chest Respiratory/Chest: Denies cough, dyspnea or dyspnea on exertion Gastrointestinal Gastrointestinal: Reports nausea; Denies abdominal pain, diarrhea or vomiting Genitourinary Genitourinary ED: Denies dysuria, hematuria or urinary frequency Musculoskeletal Musculoskeletal: Reports back pain; Denies extremity pain or neck pain Integumentary Denies rash or wounds Neurologic Neurologic: Denies headache(s), paresthesias or weakness EXAM Physical Exam Const Vital Signs: 09/26/23 09:01 09/26/23 09:44 09/26/23 12:00 Temperature 98.1 F 97.6 F L Temperature Source Temporal Pulse Rate 96 64 Respiratory Rate 14 16 Respiratory Effort Normal Non-Labored Respiratory Pattern Normal Blood Pressure 136/78 H 132/76 H Blood Pressure Mean 97 94 Pulse Ox 100 99 Oxygen Delivery Method Room Air Positive well nourished and well developed Constitutional Narrative: Walking around the room she is more comfortable with this. She is nontoxic. General Appearance ED: well developed HEENT Reports moist mucous membranes normocephalic and atraumatic Eyes PERRL, EOMs intact bilaterally and conjunctivae normal General Eye ED: Yes normal appearance of both eyes Neck no lymphadenopathy and supple General: Negative for tenderness Chest Wall Chest: Negative for tenderness Resp normal respiratory effort and normal air movement Effort and Inspection: symmetric chest movement; Negative for respiratory distress Cardio regular rate, regular rhythm and no murmurs Peripheral Pulses: pulses 2+ throughout GI normal to inspection, nondistended, normoactive bowel sounds and non-tender GI Narrative: Negative Blackmon's or McBurney's tenderness. Palpation: Negative for guarding or rebound tenderness present Back/Spine no CVA tenderness Back/Spine Narrative: Tender palpation paralumbar more on the left. No midline tenderness. No rash. Extremity normal to inspection General Extremety ED: Negative for edema or tenderness General Extremity: Negative for edema Neuro oriented x3 and no sensory deficits noted Sensorium / Orientation: awake and alert Skin no rashes or lesions noted and no wounds MDM MDM MDM Narrative Medical decision making narrative: Interventions / MDM: Differential diagnosis: Flank pain unclear etiology, nausea, electrolyte abnormalities Diagnosis considered but do not suspect: Kidney stone, however CT negative. UTI with pending urine culture results My EKG interpretation: N/A Imaging independently reviewed and interpreted by myself: CT scan abdomen pelvis: No obstructive uropathy no inflammatory changes right pelvis kidney, stable left adrenal adenoma. This is also read by radiology. External documents reviewed: N/A Test considered but not ordered:N/A ED course: Presents with persistent nausea vital stable nonsurgical abdomen. Will check abdominal labs, urine, IV fluids and IV Reglan will be given as she states Zofran did not work. 1055: Nausea is improving still has some discomfort in lower back. Urine noted signs of bacteria she denies any dysuria or frequency. Also notes hematuria. Evaluation of her previous CT early July no acute process noted a right pelvis kidney. Secondary to her discomfort will check additional flank CT for further evaluation. Her labs creatinine 1.6 down from 2 couple months ago. She was given 1 L IV fluids. Will order morphine for symptom control. 1225: CT scan abdomen pelvis persistent kidney right pelvis there is no obstructive uropathy. Left adrenal adenoma stable from previous. Reevaluation symptoms more improved she is a lot more comfortable. She is shown images of her right pelvis kidney. Her nausea much more improved with the Reglan. Will write for Reglan use as needed along with short course of pain medicines to use as needed. She will be given GI follow-up with her intermittent nausea symptoms. She has a pending PCP appointment. We discussed with her urine not having symptoms we will await urine culture results and treatment if indicated. All questions were answered. Re-evaluation: stable Disposition discussed with patient/family/significant other: Patient Case discussed with consulting clinician: N/A This note was generated with [employer] dictation software. It may contain incorrect words, spelling, and punctuation that were not noted in checking the note before signing. Lab Data Attestation: I reviewed the patient's lab results. Labs: Laboratory Results - last 24 hr 09/26/23 09:35 WBC 5.6 RBC 4.56 Hgb 13.1 Hct 38.8 MCV 85.1 MCH 28.7 MCHC 33.8 RDW Std Deviation 40.0 RDW Coeff of Sanya 12.9 Plt Count 256 MPV 9.5 Immature Gran % (Auto) 0.200 Neut % (Auto) 66.7 Lymph % (Auto) 28.2 [place] % (Auto) 4.5 Eos % (Auto) 0.0 Baso % (Auto) 0.4 Absolute Neuts (auto) 3.7 Absolute Lymphs (auto) 1.57 Nucleated RBC % 0 Sodium 142 Potassium 3.9 Chloride 113 H Carbon Dioxide 21.0 Anion Gap 8 BUN 23 H Creatinine 1.66 H Estim Creat Clear Calc 39.19 Est GFR (MDRD) Af Amer 42 L Est GFR (MDRD) Non-Af 35 L BUN/Creatinine Ratio 13.9 Glucose 177 H Calcium 10.7 H Total Bilirubin 0.50 AST 16 ALT 24 Alkaline Phosphatase 78 Total Protein 8.3 H Albumin 4.1 Globulin 4.2 Albumin/Globulin Ratio 1.0 Lipase 20 Urine Color Yellow Urine Clarity Sl. Cloudy Urine pH 5.0 Ur Specific [place] 1.030 Urine Protein 30 H Urine Glucose (UA) Normal Urine Ketones 50 H Urine Occult Blood 10 H Urine Nitrite Negative Urine Bilirubin 1 H Urine Urobilinogen 4 H Ur Leukocyte Esterase 100 H Urine RBC 0-5 SEEN Urine WBC 10-25 SEEN Ur Squamous Epith Cells 10-25 SEEN Urine Bacteria 1+ Hyaline Casts 0-5 SEEN Urine Mucus 0 SEEN Radiography Diagnostic Testing: Clinical Impression(s) from Imaging Studies Abdomen/Pelvis CT 09/26/23 10:54 IMPRESSION: Right pelvic kidney. No renal calcification or obstructive uropathy is seen at this time. Electronically Signed: Abhishek Louis MD at 12:09 EST , Discharge Plan Triage Chief Complaint: General Illness ED Provider: Alexander Venegas Dx/Rx/DC Orders Clinical Impression: Flank pain, Renal insufficiency Instructions: ED Flank Pain, Uncertain Cause, ED Renal Insufficiency Prescriptions: New oxycodone-acetaminophen [oxycodone-acetaminophen] 5-325 mg tablet 1 tab PO Q6H PRN PRN (Reason: Pain) 3 Days Qty: 12 0RF metoclopramide HCl [Reglan] 10 mg tablet 10 mg PO Q6H PRN (Reason: nausea and vomiting) Qty: 14 0RF No Action pantoprazole 40 mg tablet,delayed release (DR/EC) 40 mg PO DAILY Qty: 30 1RF promethazine [promethazine] 25 mg tablet 25 mg PO Q6H PRN PRN (Reason: Nausea) Qty: 10 0RF promethazine 12.5 mg tablet 12.5 mg PO TID PRN (Reason: nausea and vomiting) 3 Days Qty: 10 0RF Rx Instructions: 3 doses during day; last dose no later than 4 hr before bedtime pantoprazole [Protonix] 40 mg tablet,delayed release (DR/EC) 40 mg PO DAILY Qty: 14 0RF pantoprazole 40 mg tablet,delayed release (DR/EC) 40 mg PO DAILY Qty: 30 1RF ondansetron [ondansetron] 4 mg tablet,disintegrating 4 mg PO Q6H PRN PRN (Reason: Nausea) Qty: 15 0RF Primary Care Provider: Care Physician,No Primary Referrals: Aydin Friedman DO [Med Staff - Active Staff] - 1-2 Weeks Care Physician,No Primary [Primary Care Provider] - Activity Restrictions/Additional Instructions: Your CT scan negative you have your kidney in the right pelvis, you have a left adrenal adenoma which is benign. Your lab work creatinine 1.6 down from 2 recently. This can be followed by a primary doctor. Continue oral fluids for hydration. Use medicines as prescribed as needed. Follow-up with GI Dr. Friedman with your intermittent nausea symptoms. Plan to follow-up with your PCP to get established with a doctor. Disposition Disposition: Home, Self Care Discharge Date/Time: 09/26/23 12:43
[2023-09-26 09:44] LABS: Mucous, Urine 0 SEEN /hpf (<or=2+)
[2023-09-26] MEDS: 0.9% Normal Saline (1000mL) 1,000 ML 1000 ML IV (09:46)
[2023-09-26 09:47] LABS: Color, Urine Yellow (Yellow); Glucose, Dipstick Normal (Normal); Ketone-Dipstick 50 mg/dl (Negative); Leukocyte Esterase-Dipstick 100 /ul (Negative); Nitrite-Dipstick Negative (Negative); Occult Blood-Urine 10 /ul (Negative); Protein-Dipstick 30 mg/dl (Negative); Urine Bilirubin Dipstick 1 mg/dL (Negative); Urine Clarity Sl. Cloudy (Clear); Urine Urobilinogen 4 mg/dl (Normal)
[2023-09-26 09:48] LABS: Absolute Lymphocyte Count 1.57 X10^3/uL (0.83-4.51); Absolute Neutrophil Count 3.7 X10^3/uL (2.0-7.7); Basophil# 0.02 X10^3/uL; Basophil% 0.4 % (0-1); Hematocrit 38.8 % (37-47); Hemoglobin 13.1 g/dL (12.0-15.0); Lymphocyte # 1.57 X10^3/ul (0.83-4.51); Lymphocyte % 28.2 % (19-41); Mean Corp Hgb Conc 33.8 g/dL (32-36); Mean Corpuscular Hgb 28.7 pg (27.0-32.0); Mean Corpuscular Volume 85.1 fL (81-99); Mean Platelet Vol. 9.5 fl (6.2-12.0); Monocyte# 0.25 X10^3/uL; Monocyte% 4.5 % (0-10); NRBC Flagged by Analyzer 0 % (0-5); Neutrophil # 3.72 X10^3/uL (2.7-7.7); Neutrophil % 66.7 % (47-70); Platelet Count 256 K/mm3 (150-450); RBC Distribution Width CV 12.9 % (11.6-14.6); Red Blood Count 4.56 M/mm3 (4.2-5.4); White Blood Count 5.6 K/mm3 (4.4-11.0)
[2023-09-26 09:53] LABS: Bacteria 1+ /hpf (None Seen); Hyaline Cast 0-5 SEEN /lpf (0-5); Red Blood Cells-Urine 0-5 SEEN /hpf (0-5); Squamous Epithelial Cells - UA 10-25 SEEN /hpf (5-10); White Blood Cells 10-25 SEEN /hpf (0-5)
[2023-09-26] MEDS: Metoclopramide 10 MG/2 ML Vial 5 MG IV (09:53)
[2023-09-26 10:09] LABS: AST(SGOT) 16 U/L (15-37); Alanine Aminotransfer ALT/SGPT 24 U/L (13-56); Albumin, Serum 4.1 g/dL (3.2-5.0); Alkaline Phosphatase 78 U/L (45-117); Anion Gap 8 (5-15); BUN 23 mg/dL (7-18); BUN/Creat Ratio 13.9 RATIO (10-20); Calcium,Total 10.7 mg/dL (8.5-10.1); Chloride 113 mmol/L (98-107); Creatinine, Serum 1.66 mg/dL (0.55-1.02); EST Glomerular Filtration Rate 35 mL/min (>60); Est Glom Filt Rate - Afr Amer 42 mL/min (>60); Estimated Creatinine Clearance 39.19 ml/min; Globulin 4.2 g/dL (2.2-4.2); Glucose 177 mg/dL (74-106); Lipase 20 U/L (13-75); Potassium 3.9 mmol/L (3.5-5.1); Protein, Total 8.3 g/dL (6.4-8.2); Sodium Level 142 mmol/L (136-145)
--- OUTSIDE RECORDS SUMMARY | 2023-09-26 10:18 | XMS RPT_ITS | CCD ---
Author Name Unknown Address [address] [place] [address] Organization [facility] Care Team Providers Care Water Technician Name Role Phone Unavailable Primary Care Provider [...] Drug Class(es) Dates Sig (Normalized) Sig (Original) [id number] 200 actuat albuterol 0.09 mg/actuat metered dose [...] 11:45-0400 Body temperature 97.59 [degF] Aidan Mcclelland APRN.STEEL SPAR OPERATOR Work Phone: [facility] 05-24-2023 11:45-0400 Body weight 94.71 kg Aidan Mcclelland APRN.STEEL SPAR OPERATOR Work Phone: [facility] 05-24-2023 11:45-0400 Diastolic blood pressure 84 mm[Hg] Aidan Mcclelland APRN.STEEL SPAR OPERATOR Work Phone: [facility] 05-24-2023 11:45-0400 Heart rate 70 /min Aidan Mcclelland APRN.STEEL SPAR OPERATOR Work Phone: [facility] 05-24-2023 11:45-0400 Respiratory rate 18 /min Aidan Mcclelland APRN.STEEL SPAR OPERATOR Work Phone: [facility] 05-24-2023 11:45-0400 SaO2% (BldA) [Mass fraction] 96 % Aidan Mcclelland APRN.STEEL SPAR OPERATOR Work Phone: [facility] 05-24-2023 11:45-0400 Systolic blood pressure 127 mm[Hg] Aidan Mcclelland APRN.STEEL SPAR OPERATOR Work Phone: [facility] Encounters Encounter Date Encounter Type Care Provider Facility Start: 05-24-2023 End: 05-24-2023 ambulatory AIDAN MCCLELLAND Facility:[facility] Start: 05-24-2023 End: 05-24-2023 Patient encounter procedure Aidan Mcclelland APRN.CNP Work Phone: [facility] Plan of Treatment Date Care Activity Detail Author Start: 04-29-2023 Influenza vaccination Influenza Vacc ine (#1) [facility] Start: 08-29-2022 Depression Assessment Depression Ass essment [facility] Start: 2022 Shingrix Vaccine (1 of 2) Shingrix V accine (1 of 2) [facility] Start: 2017 Cologuard (FIT-DNA) Cologuard (FIT-D NA) [facility] Start: 2017 Colonoscopy Colonoscopy [facility] Start: 2017 Colorectal Cancer Screening Colorectal Cancer Screening [facility] Start: [address] COLONOGRAPHY [facility] Start: 2017 Diabetes Screening Diabetes Screenin g [facility] Start: 2017 Fecal Occult Blood Fecal Occult Bloo d [facility] Start: 2017 Lipid 1996 panel - S mickey or Plasma Lipid Screening [facility] Start: 2017 SIGMOIDOSCOPY SIGMOIDOSCOPY [facility] Start: 05-07-2016 Pap Testing Pap Testing [facility] Start: 2012 Mammography Mammogram Screening [facility] Start: 2002 HPV Testing HPV Testing [facility] Start: 08-10-1999 Urine microalbumin profile DTa P,Tdap,Td Vaccine (6 - Tdap) [facility] Start: 1990 Hepatitis C Screening Hepatitis C Sc reening [facility] Start: 1978 Pneumococcal vaccination Pneum ococcal Vaccine (1 - PCV) [facility] Start: 1972 Covid-19 Vaccine (#1) Covid-19 Vacci ne (#1) [facility] Start: 1972 Hepatitis B Vaccine (1 of 3 - 3-dose series) Hepatitis B Vaccine (1 of 3 - 3-dose series) [facility] Immunizations Immunization Date Immunization Notes Care Provider Julia de leon 08-10-1989 diphtheria and tetan us toxoids, adsorbed for pediatric use Aidan Mcclelland APRN.CNP Work Phone: [facility] 08-10-1989 trivalent poliovirus vaccine, live, oral Aidan Dustin BALL ROLLING MACHINE OPERATOR.STEEL SPAR OPERATOR Work Phone: [facility] 05-31-1984 measles, mumps and rubella virus vaccine Aidan Dustin BALL ROLLING MACHINE OPERATOR.STEEL SPAR OPERATOR Work Phone: [facility] 01-27-1977 diphtheria, tetanus toxoids and acellular pertussis vaccine Aidan Dustin BALL ROLLING MACHINE OPERATOR.STEEL SPAR OPERATOR Work Phone: [facility] 01-27-1977 trivalent poliovirus vaccine, live, oral Aidan Dustin BALL ROLLING MACHINE OPERATOR.STEEL SPAR OPERATOR Work Phone: [facility] 04-29-1976 diphtheria, tetanus toxoids and acellular pertussis vaccine Aidan Dustin BALL ROLLING MACHINE OPERATOR.STEEL SPAR OPERATOR Work Phone: [facility] 04-29-1976 trivalent poliovirus vaccine, live, oral Aidan Dustin BALL ROLLING MACHINE OPERATOR.STEEL SPAR OPERATOR Work Phone: [facility] 01-27-1975 diphtheria, tetanus toxoids and acellular pertussis vaccine Aidan Dustin BALL ROLLING MACHINE OPERATOR.STEEL SPAR OPERATOR Work Phone: [facility] 01-27-1975 measles, mumps and rubella virus vaccine Aidan Dustin BALL ROLLING MACHINE OPERATOR.STEEL SPAR OPERATOR Work Phone: [facility] 01-27-1975 trivalent poliovirus vaccine, live, oral Aidan Dustin BALL ROLLING MACHINE OPERATOR.STEEL SPAR OPERATOR Work Phone: [facility] 11-27-1974 diphtheria, tetanus toxoids and acellular pertussis vaccine Aidan Dustin BALL ROLLING MACHINE OPERATOR.STEEL SPAR OPERATOR Work Phone: [facility] Payers Date Payer Category Payer Medicaid [facility] MEDICAID [facility] COMMUN[employer] MEDICA[place] [id number] 2022-Present [phone] [address] [place] [address] Medicaid [id number] 2022 Medicaid [id number] Social History Date Type Detail Facility Start: 05-24-2023 Tobacco smoking stat us NHIS Smokes tobacco daily [facility] History of tobacco use Cigarette Smoker C [facility] Start: 05-24-2023 Tobacco use and exposure Smokeless tobacco non-user [facility] Start: 05-24-2023 Alcohol intake Current drinke r of alcohol (finding) [facility] Start: 08-06-2020 End: 05-24-2023 History of Social function [facility] Start: 08-06-2020 End: 05-24-2023 Tobacco use panel [facility] National Score (1-10 0), lower number is lower risk Not on file [facility] Start: 05-24-2023 Tobacco Comment 5 cigarettes per day [facility] Start: 10-22-2009 Alcohol Comment OCCASIONALLY B UT NOT WHILE [facility] Start: 1972 Sex Assigned At Not on file C [facility] Progress note 05-24-2023 Note Date & Type Note Facility 05-24-2023 Note HNO ID: [id number] Author: Rach Reid RT(R) Service: Radiology Author [...] RT Onesimo(R) May 24, 2023 12:03 PM [facility] Progress note 05-24-2023 Note Date & Type Note Facility 05-24-2023 Note HNO ID: [id number] Author: Aidan Mcclelland APRN.STEEL SPAR OPERATOR Service: ? Author Type: Nurse Practitioner Type: [...] history is provided by the patient. No hourly sign language interpreter was used. Review of Systems Constitutional: Negative. [...] changes. IMPRESSION IMPRESSION: Nonobstructive bowel gas pattern. Sweatband Shaper: DONAVAN Transcribe Date/Time: May 24 2023 12:18P Dictated by : KAMALA COLE MD 2. Nausea - ICD9: 787.02, ICD10: R11.0 - ONDANSETRON 4 MG DISINTEGRATING TABLET Aidan Mcclelland APRN.RITA [facility] History of Present illness Narrative 05-24-2023 Aidan [...] history is provided by the patient. No hourly sign language interpreter was used. Review of Systems Constitutional: Negative. [...] changes. IMPRESSION IMPRESSION: Nonobstructive bowel gas pattern. Sweatband Shaper: DONAVAN Transcribe Date/Time: May 24 2023 12:18P Dictated by : KAMALA COLE MD 2. Nausea - ICD9: 787.02, ICD10: R11.0 - ONDANSETRON 4 MG DISINTEGRATING TABLET Aidan Mcclelland APRN.STEEL SPAR OPERATOR documented in this encounter [facility] Evaluation note Note Date & Type Note Facility documented in this encounter [facility] Reason for referral (narrative) Diagnostic Procedure Only (Urgent) - Closed Note Date & Type Note Facility Referral ID Status Reason Start Date Expiration Date V isits Requested Visits Authorized [id number] Closed Auto-Generate d Referral 05/24/2023 06/22/2024 1 1 [facility] Summary Purpose Family History No Family History [...] or prosecute any alcohol or drug abuse patient.[facility] Reason for Visit (unrecogniz ed section and [...] BE BASED ON THE PRIMARY CLINICAL RECORDS. [facility] [employer] [facility]. provides no warranty or guarantee of the accuracy or completeness of information in this document.
--- NOTE | 2023-09-26 10:54 | CT_ITS ---
STUDY: CT ABDOMEN AND PELVIS WITHOUT CONTRAST REASON FOR EXAM: Female, 53 years old. Flank pain -- hematuria RADIATION DOSAGE (If Supplied By Facility): CTDIvol = ( 17.65 ) mGy, DLP = ( 806.70 ) mGycm TECHNIQUE: Transaxial images were obtained from the dome of the diaphragm to the symphysis pubis without oral contrast, and without intravenous contrast. Sagittal and coronal images were reconstructed. Individualized dose optimization techniques were used for this CT. COMPARISON: Comparison is made with prior study dated July 29, 2023. FINDINGS: The visualized lung bases are unremarkable. Coronary artery calcification. Normal liver. Normal gallbladder and extrahepatic biliary system. Normal spleen. Normal pancreas. There is a small, circumscribed, smooth, low attenuation left adrenal mass, consistent with an adrenal adenoma. This measures 9.1 mm. This is unchanged. Normal right adrenal gland. Once again, is evidence of a right pelvic kidney. Normal left kidney. There is a small hiatal hernia. Normal small intestine. Normal colon. The appendix is visualized and appears normal. There is scattered atherosclerotic calcification of the abdominal aorta, without a demonstrated aneurysm. Normal inferior vena cava. Normal retroperitoneum. Normal urinary bladder. Normal abdominal wall. There are mild degenerative changes of the visualized lumbar spine. CT/Abdomen/Pelvis without Cont IMPRESSION: Right pelvic kidney. No renal calcification or obstructive uropathy is seen at this time. Electronically Signed: Abhishek Louis MD at 12:09 [facility] ,
[2023-09-26] MEDS: Morphine 4 MG/ML Syringe IV (11:08)
[2023-09-26 12:00] VITALS: BP 132/76; PULSE 64; RESP 16; TEMP 36.4; O2SAT 99
== END 2023-09-26 12:43 | disposition home or self-care (01) ==
PROVIDERS: Emergency Provider Emergency Medicine; Visit Provider Emergency Medicine
DX: N28.9 Disorder of kidney and ureter, unspecified (principal); D35.02 Benign neoplasm of left adrenal gland; R11.0 Nausea; F17.210 Nicotine dependence, cigarettes, uncomplicated; R31.9 Hematuria, unspecified; K21.9 Gastro-esophageal reflux disease without esophagitis; Z79.899 Other long term (current) drug therapy; R10.9 Unspecified abdominal pain; M54.9 Dorsalgia, unspecified
CPT/HCPCS: 74176; 80053; 81001; 83690; 85025; 87086; 87088; 96361; 96374; 96376; 99283; J7030; A4216

== ENCOUNTER 2023-11-10 21:00 | Emergency (ER) | payer MEDICAID, SELFPAY ==
[2023-11-10 21:01] VITALS: BP 127/79; PULSE 86; RESP 30; TEMP 35.9; O2SAT 98
[2023-11-10 21:03] VITALS: BMI 33.1
[2023-11-10 22:12] LABS: Absolute Lymphocyte Count 3.03 X10^3/uL (0.83-4.51); Absolute Neutrophil Count 2.9 X10^3/uL (2.0-7.7); Basophil# 0.02 X10^3/uL; Basophil% 0.3 % (0-1); Eosinophil# 0.07 X10^3/uL; Eosinophils% 1.1 % (0-5); Hematocrit 41.9 % (37-47); Hemoglobin 13.6 g/dL (12.0-15.0); Lymphocyte # 3.03 X10^3/ul (0.83-4.51); Lymphocyte % 46.1 % (19-41); Mean Corp Hgb Conc 32.5 g/dL (32-36); Mean Corpuscular Hgb 28.1 pg (27.0-32.0); Mean Corpuscular Volume 86.6 fL (81-99); Mean Platelet Vol. 10.8 fl (6.2-12.0); Monocyte# 0.57 X10^3/uL; Monocyte% 8.7 % (0-10); NRBC Flagged by Analyzer 0 % (0-5); Neutrophil # 2.87 X10^3/uL (2.7-7.7); Neutrophil % 43.6 % (47-70); Platelet Count 251 K/mm3 (150-450); RBC Distribution Width CV 12.8 % (11.6-14.6); RBC Distribution Width SD 40.1 fl (35.1-43.9); Red Blood Count 4.84 M/mm3 (4.2-5.4); White Blood Count 6.6 K/mm3 (4.4-11.0)
[2023-11-10] MEDS: Metoclopramide 10 MG/2 ML Vial IV (22:18)
[2023-11-10] MEDS: Morphine 4 MG/ML Syringe IV (22:19)
[2023-11-10] MEDS: DiphenhydrAMINE 50 MG/ML Syringe 12.5 MG IV (22:19)
[2023-11-10] MEDS: 0.9% Normal Saline (1000mL) 1,000 ML 999 ML IV (22:20)
[2023-11-10 22:27] LABS: Mucous, Urine 0 SEEN /hpf (<or=2+); Red Blood Cells-Urine 0 SEEN /hpf (0-5)
[2023-11-10 22:28] LABS: Color, Urine Yellow (Yellow); Glucose, Dipstick Normal (Normal); Ketone-Dipstick 15 mg/dl (Negative); Leukocyte Esterase-Dipstick 100 /ul (Negative); Nitrite-Dipstick Positive (Negative); Occult Blood-Urine 10 /ul (Negative); Protein-Dipstick 30 mg/dl (Negative); Specific Gravity, Urine 1.025 (1.002-1.030); Urine Clarity Sl. Cloudy (Clear); Urine Urobilinogen 4 mg/dl (Normal)
[2023-11-10] MEDS: Pantoprazole Sodium 40 MG in 0.9% Normal Saline (100mL MB+) 100 ML 330 MG IV (22:28)
[2023-11-10 22:29] LABS: Urine Bilirubin Dipstick 3 mg/dL (Negative)
[2023-11-10 22:34] LABS: Bacteria 3+ /hpf (None Seen); Calcium Oxalate Crystals Ur 1+ /hpf (<or=2+); Hyaline Cast 5-10 SEEN /lpf (0-5); Squamous Epithelial Cells - UA 5-10 SEEN /hpf (5-10)
[2023-11-10 22:35] LABS: White Blood Cells 0-5 SEEN /hpf (0-5)
[2023-11-10 22:37] LABS: AST(SGOT) 36 U/L (15-37); Alanine Aminotransfer ALT/SGPT 21 U/L (13-56); Albumin, Serum 4.1 g/dL (3.2-5.0); Alkaline Phosphatase 69 U/L (45-117); Anion Gap 8 (5-15); BUN 16 mg/dL (7-18); BUN/Creat Ratio 9.8 RATIO (10-20); Bilirubin, Direct 0.13 mg/dL (0.00-0.30); Calcium,Total 10.9 mg/dL (8.5-10.1); Chloride 110 mmol/L (98-107); Creatinine, Serum 1.63 mg/dL (0.55-1.02); EST Glomerular Filtration Rate 35 mL/min (>60); Est Glom Filt Rate - Afr Amer 43 mL/min (>60); Estimated Creatinine Clearance 38.99 ml/min; Globulin 4.5 g/dL (2.2-4.2); Glucose 154 mg/dL (74-106); Lipase 22 U/L (13-75); Potassium 4.5 mmol/L (3.5-5.1); Protein, Total 8.6 g/dL (6.4-8.2); Sodium Level 142 mmol/L (136-145)
--- OUTSIDE RECORDS SUMMARY | 2023-11-10 22:53 | XMS RPT_ITS | CCD ---
Author Name Unknown Address [address] [place] [address] Organization [facility] Care Team Providers Care Finished Garment Inspector Name Role Phone Unavailable Primary Care Provider [...] Drug Class(es) Dates Sig (Normalized) Sig (Original) [id number] 200 actuat albuterol 0.09 mg/actuat metered dose [...] 11:45-0400 Body temperature 97.59 [degF] Aidan Mcclelland APRN.IT SYSTEMS MANAGER Work Phone: [facility] 05-24-2023 11:45-0400 Body weight 94.71 kg Aidan Mcclelland APRN.IT SYSTEMS MANAGER Work Phone: [facility] 05-24-2023 11:45-0400 Diastolic blood pressure 84 mm[Hg] Aidan Mcclelland APRN.IT SYSTEMS MANAGER Work Phone: [facility] 05-24-2023 11:45-0400 Heart rate 70 /min Aidan Mcclelland APRN.IT SYSTEMS MANAGER Work Phone: [facility] 05-24-2023 11:45-0400 Respiratory rate 18 /min Aidan Mcclelland APRN.IT SYSTEMS MANAGER Work Phone: [facility] 05-24-2023 11:45-0400 SaO2% (BldA) [Mass fraction] 96 % Aidan Mcclelland APRN.IT SYSTEMS MANAGER Work Phone: [facility] 05-24-2023 11:45-0400 Systolic blood pressure 127 mm[Hg] Aidan Mcclelland APRN.IT SYSTEMS MANAGER Work Phone: [facility] Encounters Encounter Date Encounter Type Care Provider Facility Start: 05-24-2023 End: 05-24-2023 ambulatory AIDAN MCCLELLAND Facility:[facility] Start: 05-24-2023 End: 05-24-2023 Patient encounter procedure Aidan Mcclelland APRN.CNP Work Phone: [facility] Plan of Treatment Date Care Activity Detail Author Start: 04-29-2023 Influenza vaccination Influenza Vacc ine (#1) [facility] Start: 08-29-2022 Depression Assessment Depression Ass essment [facility] Start: 2022 Shingrix Vaccine (1 of 2) Shingrix V accine (1 of 2) [facility] Start: 2017 Cologuard (FIT-DNA) Cologuard (FIT-D NA) [facility] Start: 2017 Colonoscopy Colonoscopy [facility] Start: 2017 Colorectal Cancer Screening Colorectal Cancer Screening [facility] Start: [address] COLONOGRAPHY [facility] Start: 2017 Diabetes Screening Diabetes Screenin g [facility] Start: 2017 Fecal Occult Blood Fecal Occult Bloo d [facility] Start: 2017 Lipid 1996 panel - S mickey or Plasma Lipid Screening [facility] Start: 2017 SIGMOIDOSCOPY SIGMOIDOSCOPY [facility] Start: 05-07-2016 Pap Testing Pap Testing [facility] Start: 2012 Mammography Mammogram Screening [facility] Start: 2002 HPV Testing HPV Testing [facility] Start: 08-10-1999 Urine microalbumin profile DTa P,Tdap,Td Vaccine (6 - Tdap) [facility] Start: 1990 Hepatitis C Screening Hepatitis C Sc reening [facility] Start: 1978 Pneumococcal vaccination Pneum ococcal Vaccine (1 - PCV) [facility] Start: 1972 Covid-19 Vaccine (#1) Covid-19 Vacci ne (#1) [facility] Start: 1972 Hepatitis B Vaccine (1 of 3 - 3-dose series) Hepatitis B Vaccine (1 of 3 - 3-dose series) [facility] Immunizations Immunization Date Immunization Notes Care Provider Julia de leon 08-10-1989 diphtheria and tetan us toxoids, adsorbed for pediatric use Aidan Mcclelland APRN.CNP Work Phone: [facility] 08-10-1989 trivalent poliovirus vaccine, live, oral Aidan Dustin GOVERNMENT TEACHER.IT SYSTEMS MANAGER Work Phone: [facility] 05-31-1984 measles, mumps and rubella virus vaccine Aidan Dustin GOVERNMENT TEACHER.IT SYSTEMS MANAGER Work Phone: [facility] 01-27-1977 diphtheria, tetanus toxoids and acellular pertussis vaccine Aidan Dustin GOVERNMENT TEACHER.IT SYSTEMS MANAGER Work Phone: [facility] 01-27-1977 trivalent poliovirus vaccine, live, oral Aidan Dustin GOVERNMENT TEACHER.IT SYSTEMS MANAGER Work Phone: [facility] 04-29-1976 diphtheria, tetanus toxoids and acellular pertussis vaccine Aidan Dustin GOVERNMENT TEACHER.IT SYSTEMS MANAGER Work Phone: [facility] 04-29-1976 trivalent poliovirus vaccine, live, oral Aidan Dustin GOVERNMENT TEACHER.IT SYSTEMS MANAGER Work Phone: [facility] 01-27-1975 diphtheria, tetanus toxoids and acellular pertussis vaccine Aidan Dustin GOVERNMENT TEACHER.IT SYSTEMS MANAGER Work Phone: [facility] 01-27-1975 measles, mumps and rubella virus vaccine Aidan Dustin GOVERNMENT TEACHER.IT SYSTEMS MANAGER Work Phone: [facility] 01-27-1975 trivalent poliovirus vaccine, live, oral Adian Dustin GOVERNMENT TEACHER.IT SYSTEMS MANAGER Work Phone: [facility] 11-27-1974 diphtheria, tetanus toxoids and acellular pertussis vaccine Aidan Dustin GOVERNMENT TEACHER.IT SYSTEMS MANAGER Work Phone: [facility] Payers Date Payer Category Payer Medicaid [facility] MEDICAID [facility] [employer] [place]ICA[employer] [place] [id number] 2022-Present [phone] [address] [place] [address] Medicaid [id number] 2022 Medicaid [id number] Social History Date Type Detail Facility Start: 05-24-2023 Tobacco smoking stat us NHIS Smokes tobacco daily [facility] History of tobacco use Cigarette Smoker [facility] Start: 05-24-2023 Tobacco use and exposure Smokeless tobacco non-user [facility] Start: 05-24-2023 Alcohol intake Current drinke r of alcohol (finding) [facility] Start: 08-06-2020 End: 05-24-2023 History of Social function [facility] Start: 08-06-2020 End: 05-24-2023 Tobacco use panel [facility] National Score (1-10 0), lower number is lower risk Not on file [facility] Start: 05-24-2023 Tobacco Comment 5 cigarettes per day [facility] Start: 10-22-2009 Alcohol Comment OCCASIONALLY B UT NOT WHILE [facility] Start: 1972 Sex Assigned At Not on file [facility] Progress note 05-24-2023 Note Date & Type Note Facility 05-24-2023 Note HNO ID: [id number] Author: Rach Reid RT(R) Service: Radiology Author [...] RT Onesimo(R) May 24, 2023 12:03 PM [facility] Progress note 05-24-2023 Note Date & Type Note Facility 05-24-2023 Note HNO ID: [id number] Author: Aidan Mcclelland APRN.IT SYSTEMS MANAGER Service: ? Author Type: Nurse Practitioner [...] history is provided by the patient. No foreign language stenographer was used. Review of Systems Constitutional: Negative. [...] changes. IMPRESSION IMPRESSION: Nonobstructive bowel gas pattern. Bilingual Elementary School Teacher: DONAVAN Transcribe Date/Time: May 24 2023 12:18P Dictated by : KAMALA COLE MD 2. Nausea - ICD9: 787.02, ICD10: R11.0 - ONDANSETRON 4 MG DISINTEGRATING TABLET Aidan Mcclelland APRN.RITA [facility] History of Present illness Narrative 05-24-2023 [...] history is provided by the patient. No foreign language stenographer was used. Review of Systems Constitutional: Negative. [...] changes. IMPRESSION IMPRESSION: Nonobstructive bowel gas pattern. [employer]ilingual Elementary School Teacher: DONAVAN Transcribe Date/Time: May 24 2023 12:18P Dictated by : KAMALA COLE MD 2. Nausea - ICD9: 787.02, ICD10: R11.0 - ONDANSETRON 4 MG DISINTEGRATING TABLET Aidan Mcclelland APRN.IT SYSTEMS MANAGER documented in this encounter [facility] Evaluation note Note Date & Type Note Facility documented in this encounter [facility] Reason for referral (narrative) Diagnostic Procedure Only (Urgent) - Closed Note Date & Type Note Facility Referral ID Status Reason Start Date Expiration Date V isits Requested Visits Authorized [id number] Closed Auto-Generate d Referral 05/24/2023 06/22/2024 1 1 [facility] Summary Purpose Family History No Family [...] or prosecute any alcohol or drug abuse patient.[facility] Reason for Visit (unrecogniz ed section [...] BE BASED ON THE PRIMARY CLINICAL RECORDS. [facility] [employer] [facility]. provides no warranty or guarantee of the accuracy or completeness of information in this document.
[2023-11-10 23:01] VITALS: BP 150/73; PULSE 64; RESP 16; O2SAT 100
--- NOTE | 2023-11-10 23:06 | EX.ED.DYSGE1 ---
HPI History of Present Illness Chief Complaint: Flank Pain Informant: patient Narrative Narrative: Patient is a 53-year-old female who reports she has GERD/gastritis which is controlled with Protonix. She states secondary to this she has mild discomfort daily but it is overall controlled with her Protonix. She states has been out of her medications now for multiple days and each day she is developing more and more pain. She states she has generalized abdominal discomfort with back pain and nausea. She states this is how she typically feels when her GERD/gastritis flares up. She denies any dysuria at this time. She denies any fevers or chills. She states that there is been no recent trauma. She does report that she was seen roughly 4 to 6 weeks ago for similar event and had multiple studies done with CT scan reviewed which revealed no obvious sign of kidney stone or infection. She states that with the return of her symptoms not being controlled with her home medication or [id number] medication she presents for evaluation [facility] Medical History Chronic GERD Home Medications pantoprazole 40 mg tablet,delayed release (Protonix) 40 mg PO DAILY #14 tabs 05/29/23 [Rx Last Taken Unknown] promethazine 12.5 mg tablet 12.5 mg PO TID PRN nausea and vomiting 3 days #10 tabs 05/29/23 [Rx Last Taken Unknown] pantoprazole 40 mg tablet,delayed release 40 mg PO DAILY #30 tabs 07/29/23 [Rx Last Taken Unknown] promethazine 25 mg tablet 25 mg PO Q6H PRN PRN Nausea #10 TABLETS 07/29/23 [Rx Last Taken Unknown] ondansetron 4 mg disintegrating tablet 4 mg PO Q6H PRN PRN Nausea #15 tabs 09/25/23 [Rx Last Taken Unknown] pantoprazole 40 mg tablet,delayed release 40 mg PO DAILY #30 tabs 09/25/23 [Rx Last Taken Unknown] metoclopramide HCl 10 mg tablet (Reglan) 10 mg PO Q6H PRN nausea and vomiting #14 tabs 09/26/23 [Rx Last Taken Unknown] oxycodone-acetaminophen 5 mg-325 mg tablet 1 tab PO Q6H PRN PRN Pain 3 days #12 TABLETS 09/26/23 [Rx Last Taken Unknown] cephalexin 500 mg capsule 500 mg PO TID 7 days #21 caps 11/10/23 [Rx Last Taken Unknown] metoclopramide HCl 10 mg tablet (Reglan) 10 mg PO 4X/DAY PRN PRN nausea and vomiting #30 tabs 11/10/23 [Rx Last Taken Unknown] oxycodone-acetaminophen 5 mg-325 mg tablet (Percocet) 1 tab PO Q6H PRN pain 3 days #12 tabs 11/10/23 [Rx Last Taken Unknown] pantoprazole 40 mg tablet,delayed release (Protonix) 40 mg PO DAILY #30 tabs 11/10/23 [Rx Last Taken Unknown] Allergy/AdvReac Type Severity Reaction Status Date / Time No Known Allergies Allergy Verified 11/10/23 21:03 Social History Smoking Status: Current every day smoker tobacco type: cigarettes ROS ROS ED Constitutional Constitutional ED: Denies chills or fever(s) Eyes Eyes: Denies change in vision ENT ENT ED: Denies sore throat Cardiovascular Cardiovascular: Denies chest pain Respiratory/Chest Respiratory/Chest: Denies cough or dyspnea Gastrointestinal Gastrointestinal: Reports abdominal pain and nausea; Denies diarrhea or vomiting Genitourinary Genitourinary ED: Denies dysuria or hematuria Musculoskeletal Musculoskeletal: Reports back pain; Denies myalgias Integumentary Denies rash Neurologic Neurologic: Denies headache(s) Hematologic/Lymphatic Hematologic/Lymphatic: Denies easy bleeding or easy bruising EXAM Physical Exam Const Vital Signs: 11/10/23 21:01 11/10/23 23:01 11/10/23 23:29 Temperature 96.6 F L 97.8 F Temperature Source Temporal Pulse Rate 86 64 67 Respiratory Rate 30 H 16 15 Blood Pressure 127/79 H 150/73 H 150/73 H Blood Pressure Mean 95 98 98 Pulse Ox 98 100 100 Oxygen Delivery Method Room Air Room Air Positive well nourished, well developed and obese General Appearance ED: well developed Nutritional Appearance: obese HEENT Reports moist mucous membranes HEENT Narrative: No tongue or lip swelling no oral lesions no airway edema or compromise No signs of infection noted in the posterior pharynx Eyes PERRL and EOMs intact bilaterally General Eye ED: Negative for scleral icterus Neck supple Neck Narrative: No nuchal rigidity or meningeal signs noted Resp normal respiratory effort and clear to auscultation bilaterally Cardio regular rate and regular rhythm Rate: other Other Details: Heart is regular rate and rhythm without murmurs rubs or gallop. Radial and carotid pulses equal and symmetric GI non-distended and no masses GI Narrative: Abdomen is soft and nondistended with normal active bowel sounds. There is mild diffuse pain on palpation without voluntary guarding or rigidity or pulsatile mass Auscultation: normoactive bowel sounds Palpation: soft Back/Spine no CVA tenderness Extremity normal to inspection Neuro oriented x3, CN's II-XII intact bilaterally and no sensory deficits noted Sensorium / Orientation: alert Motor Exam: strength 5/5 throughout Psych Psych Narrative: Patient has a nervous/anxious affect Skin no rashes or lesions noted and no wounds General Skin Exam: Negative for jaundice MDM MDM MDM Narrative Medical decision making narrative: Patient arrived to the ER tachypneic but otherwise afebrile with stable vitals and was felt that her tachypnea was secondary to pain. She reported that she is been out of her daily medications and that this is how she normally feels once her GERD/gastritis flares up. Chart review was performed and show she did have basic labs and a CT scan roughly 4 to 6 weeks ago. As she does not have overt CVA tenderness I did not feel need for repeat CT scan at this time. However additional diagnosis is for biliary colic versus acute cholecystitis versus pancreatitis versus gastritis versus UTI versus pyelonephritis. Therefore basic blood work was obtained. Labs show chronic kidney disease with patient's creatinine near her baseline and otherwise no clinically significant findings. Patient's urine does show +3 bacteria and it is nitrite positive but there is also mild contamination. Therefore the urine will be sent for culture but based on her low back pain I will start her on antibiotics for potential infection. She was given IV hydration as well as morphine Benadryl Reglan and Protonix and had resolution of symptoms. On repeat evaluation abdomen soft and nonsurgical. Therefore as patient is not showing signs of acute on chronic kidney injury or urosepsis and she has had improvement of pain and my concern for gastric perforation is low do not feel there is need for further workup and she is otherwise safe for discharge History & Record Review Discussion w/independent historian: Patient Lab Data Attestation: I reviewed the patient's lab results. Labs: Laboratory Results - last 24 hr 11/10/23 11/10/23 21:00 22:20 WBC 6.6 RBC 4.84 Hgb 13.6 Hct 41.9 MCV 86.6 MCH 28.1 MCHC 32.5 RDW Std Deviation 40.1 RDW Coeff of [place] 12.8 Plt Count 251 MPV 10.8 Immature Gran % (Auto) 0.200 Neut % (Auto) 43.6 L Lymph % (Auto) 46.1 H [place] % (Auto) 8.7 Eos % (Auto) 1.1 Baso % (Auto) 0.3 Absolute Neuts (auto) 2.9 Absolute Lymphs (auto) 3.03 Nucleated RBC % 0 Sodium 142 Potassium 4.5 Chloride 110 H Carbon Dioxide 24.0 Anion Gap 8 BUN 16 Creatinine 1.63 H Estim Creat Clear Calc 38.99 Est GFR (MDRD) Af Amer 43 L Est GFR (MDRD) Non-Af 35 L BUN/Creatinine Ratio 9.8 L Glucose 154 H Calcium 10.9 H Total Bilirubin 0.80 Direct Bilirubin 0.13 AST 36 ALT 21 Alkaline Phosphatase 69 Total Protein 8.6 H Albumin 4.1 Globulin 4.5 H Lipase 22 Urine Color Yellow Urine Clarity Sl. Cloudy Urine pH 5.0 Ur Specific [place] 1.025 Urine Protein 30 H Urine Glucose (UA) Normal Urine Ketones 15 H Urine Occult Blood 10 H Urine Nitrite Positive H Urine Bilirubin 3 H Urine Urobilinogen 4 H Ur Leukocyte Esterase 100 H Urine RBC 0 SEEN Urine WBC 0-5 SEEN Ur Squamous Epith Cells 5-10 SEEN Calcium Oxalate Crystal 1+ Urine Bacteria 3+ Hyaline Casts 5-10 SEEN Urine Mucus 0 SEEN Discharge Plan Triage Chief Complaint: Flank Pain ED Provider: Luciano Treviño Dx/Rx/DC Orders Clinical Impression: UTI (urinary tract infection), Gastritis Instructions: Urinary Tract Infections in Women, ED Gastritis (Adult) Prescriptions: New pantoprazole [Protonix] 40 mg tablet,delayed release (DR/EC) 40 mg PO DAILY Qty: 30 2RF metoclopramide HCl [Reglan] 10 mg tablet 10 mg PO 4X/DAY PRN PRN (Reason: nausea and vomiting) Qty: 30 0RF cephalexin 500 mg capsule 500 mg PO TID 7 Days Qty: 21 0RF oxycodone-acetaminophen [Percocet] 5-325 mg tablet 1 tab PO Q6H PRN (Reason: pain) 3 Days Qty: 12 0RF No Action pantoprazole 40 mg tablet,delayed release (DR/EC) 40 mg PO DAILY Qty: 30 1RF promethazine [promethazine] 25 mg tablet 25 mg PO Q6H PRN PRN (Reason: Nausea) Qty: 10 0RF promethazine 12.5 mg tablet 12.5 mg PO TID PRN (Reason: nausea and vomiting) 3 Days Qty: 10 0RF Rx Instructions: 3 doses during day; last dose no later than 4 hr before bedtime pantoprazole [Protonix] 40 mg tablet,delayed release (DR/EC) 40 mg PO DAILY Qty: 14 0RF pantoprazole 40 mg tablet,delayed release (DR/EC) 40 mg PO DAILY Qty: 30 1RF ondansetron [ondansetron] 4 mg tablet,disintegrating 4 mg PO Q6H PRN PRN (Reason: Nausea) Qty: 15 0RF oxycodone-acetaminophen [oxycodone-acetaminophen] 5-325 mg tablet 1 tab PO Q6H PRN PRN (Reason: Pain) 3 Days Qty: 12 0RF metoclopramide HCl [Reglan] 10 mg tablet 10 mg PO Q6H PRN (Reason: nausea and vomiting) Qty: 14 0RF Primary Care Provider: Care Physician,No Primary Referrals: Kristopher Whittington MD [Med Staff - Active Staff] - Care Physician,No Primary [Primary Care Provider] - Disposition Disposition: Home, Self Care Discharge Date/Time: 11/10/23 23:31
[2023-11-10] MEDS: Oxycodone/Apap 5/325 Tablet PO (23:26)
[2023-11-10] MEDS: Cephalexin 250 MG Capsule 500 MG PO (23:27)
[2023-11-10 23:29] VITALS: BP 150/73; PULSE 67; RESP 15; TEMP 36.6; O2SAT 100
== END 2023-11-10 23:31 | disposition home or self-care (01) ==
PROVIDERS: Emergency Provider Emergency Medicine; Visit Provider Emergency Medicine
DX: N39.0 Urinary tract infection, site not specified (principal); F17.210 Nicotine dependence, cigarettes, uncomplicated; K29.70 Gastritis, unspecified, without bleeding; K21.9 Gastro-esophageal reflux disease without esophagitis; Z79.899 Other long term (current) drug therapy
CPT/HCPCS: 80048; 80076; 81001; 83690; 85025; 87086; 87088; 96365; 96375; 99284; J7030; A4216

== ENCOUNTER 2023-12-05 10:26 | Emergency (ER) | payer MEDICAID, SELFPAY ==
[2023-12-05 10:28] VITALS: BP 108/92; PULSE 75; RESP 20; TEMP 35.3; O2SAT 97; BMI 32.4
--- NOTE | 2023-12-05 11:00 | EKG12_ITS ---
Test Reason : BACK Blood Pressure : / mmHG Vent. Rate : 060 BPM Atrial Rate : 060 BPM P-R Int : 126 ms QRS Dur : 082 ms QT Int : 424 ms P-R-T Axes : -02 029 023 degrees QTc Int : 424 ms Normal sinus rhythm Normal ECG Confirmed by Chris George ([id number]), communications editor HASMUKH MAN ([id number]) on 12/07/2023 5:41:33 AM Referred By: Confirmed By:Chris George
--- NOTE | 2023-12-05 11:03 | EX.ED.DYSGE1 ---
HPI History of Present Illness Chief Complaint: Back Informant: patient Narrative Narrative: Patient is a 53-year-old female with history of GERD presenting to the emergency room for increased abdominal discomfort, nausea, vomiting, belching and low back pain. Patient states that she has had multiple episodes like this and this feels like her flares of her GERD/gastritis. States has been compliant with her Protonix. She did she did have a mild diet change associate with Tati. She states that over the past year and a half she has had 120 pound intentional weight loss due to diet changes improvements. Patient states that this is how she felt when she was in the ER last time and did feel better when she was discharged home and her symptoms improved a couple hours after being home. Chart review shows at that time she received IV morphine, Reglan, Benadryl and Protonix. Patient is complaining of back pain that is worse on the left than the right. She has some mild abdominal discomfort again worse on the left. She has nausea with multiple episodes of vomiting. This all started last night. He has been belching more. Did have an oxycodone at home from prior visit which she took and did not provide any relief. Denies any obvious black or blood in her vomit or stool however she did have prune juice yesterday she has been constipated so this did discolor her vomit. Denies any fever. Denies urinary symptoms. [facility] Medical History Chronic GERD Home Medications pantoprazole 40 mg tablet,delayed release 40 mg PO DAILY #30 tabs 07/29/23 [Rx Last Taken Unknown] pantoprazole 40 mg tablet,delayed release 40 mg PO DAILY #30 tabs 09/25/23 [Rx Last Taken Unknown] metoclopramide HCl 10 mg tablet (Reglan) 10 mg PO Q6H PRN nausea and vomiting #20 tabs 12/05/23 [Rx Last Taken Unknown] sucralfate 1 gram tablet (Carafate) 1 g PO TID PRN abdominal discomfort #45 tabs 12/05/23 [Rx Last Taken Unknown] Allergy/AdvReac Type Severity Reaction Status Date / Time No Known Allergies Allergy Verified 12/05/23 10:28 Social History Smoking Status: Current every day smoker tobacco type: cigarettes ROS ROS ED Constitutional Constitutional ED: Denies chills or fever(s) Eyes Eyes: Denies change in vision ENT ENT ED: Denies rhinorrhea or sore throat Cardiovascular Cardiovascular: Denies chest pain Respiratory/Chest Respiratory/Chest: Denies cough Gastrointestinal Gastrointestinal: Reports abdominal pain, constipation, nausea and vomiting Genitourinary Genitourinary ED: Denies dysuria, hematuria or urinary frequency Musculoskeletal Musculoskeletal: Reports back pain; Denies neck pain Integumentary Denies rash Neurologic Neurologic: Denies headache(s) Psychiatric Psychiatric: Denies anxiety EXAM Physical Exam Const Vital Signs: 12/05/23 10:28 12/05/23 12:27 12/05/23 13:26 Temperature 95.6 F L 98.4 F Temperature Source Temporal Pulse Rate 75 72 79 Respiratory Rate 20 H 18 20 H Blood Pressure 108/92 H 103/77 116/81 H Blood Pressure Mean 97 85 92 Pulse Ox 97 96 99 Oxygen Delivery Method Room Air Room Air Positive well nourished and well developed Constitutional Narrative: Patient pacing around the room General Appearance ED: well developed and NAD HEENT Reports moist mucous membranes Eyes PERRL and EOMs intact bilaterally Neck supple and no JVD Chest Wall inspection of chest normal and palpation of chest normal Resp normal respiratory effort and clear to auscultation bilaterally Cardio regular rate, regular rhythm and no murmurs GI non-distended GI Narrative: No pain at McBurney's point, negative Blackmon sign Auscultation: normoactive bowel sounds Palpation: soft and tender LUQ; Negative for guarding Back/Spine no CVA tenderness Back/Spine Narrative: Bilateral paraspinal lumbar tenderness to palpation, more pronounced on the left. No midline tenderness appreciated. Normal range of motion of the back. No CVA tenderness. Lumbar Spine / Lower Back: Negative for lumbar spinal tenderness Extremity normal to inspection General Extremety ED: Negative for edema General Extremity: Negative for edema Neuro oriented x3 Sensorium / Orientation: alert Psych mental status grossly normal Skin no rashes or lesions noted and no wounds MDM MDM MDM Narrative Medical decision making narrative: Patient presents from home for recurrent episode of abdominal and back pain. She has has multiple ER visits for similar presentation and complaint over the past few months. She does not have any midline tenderness and reports any trauma. She appears nontoxic. Patient is hemodynamically stable in the ER. Patient denies any dizziness or lightheadedness. Vital signs are significant for low normal blood pressure. She is given IV fluids. Patient does have hyaline casts in her urine and 50 ketones were consistent with dehydration. Urinalysis is not consistent with infection. CBC CMP lipase are all normal. Her kidney function is mildly elevated at 1.77 but appears near her baseline. Given that this is more of a chronic issue she has had imaging for this in the past with no acute laboratory and I do not think repeat imaging is indicated. Patient initially is given IV fluids, Protonix, morphine and Reglan. She does have an episode of vomiting after the morphine but this resolves. Not able to tolerate p.o. Patient blood pressure does improve with IV fluids. Has outpatient follow-up with [facility] on Tuesday per patient. I will add in Carafate and is given a GI cocktail prior to discharge. Patient is requesting discharge and she needs to get home to take care of her son. Patient remains hemodynamic stable in the ER. Is given return precautions. Is instructed to continue her Protonix as well at home. Lab Data Attestation: I reviewed the patient's lab results. Labs: Laboratory Results - last 24 hr 12/05/23 12/05/23 10:13 11:27 WBC 4.9 RBC 4.52 Hgb 12.9 Hct 39.7 MCV 87.8 MCH 28.5 MCHC 32.5 RDW Std Deviation 41.5 RDW Coeff of Sanya 13.0 Plt Count 264 MPV 10.2 Immature Gran % (Auto) 0.000 Neut % (Auto) 74.5 H Lymph % (Auto) 21.7 Hopkins % (Auto) 3.0 Eos % (Auto) 0.4 Baso % (Auto) 0.4 Absolute Neuts (auto) 3.7 Absolute Lymphs (auto) 1.07 Nucleated RBC % 0 Sodium 144 Potassium 3.7 Chloride 110 H Carbon Dioxide 25.0 Anion Gap 9 BUN 15 Creatinine 1.77 H Estim Creat Clear Calc 35.52 Est GFR (MDRD) Af Amer 39 L Est GFR (MDRD) Non-Af 32 L BUN/Creatinine Ratio 8.5 L Glucose 195 H Calcium 10.1 Total Bilirubin 0.60 AST 31 ALT 25 Alkaline Phosphatase 83 Total Protein 8.2 Albumin 4.1 Globulin 4.1 Albumin/Globulin Ratio 1.0 Lipase 19 Urine Color Yellow Urine Clarity Sl. Cloudy Urine pH 5.0 Ur Specific [place] 1.030 Urine Protein 30 H Urine Glucose (UA) Normal Urine Ketones 15 H Urine Occult Blood 10 H Urine Nitrite Negative Urine Bilirubin Negative Urine Urobilinogen 4 H Ur Leukocyte Esterase 25 H Urine RBC 0-5 SEEN Urine WBC 0-5 SEEN Ur Squamous Epith Cells 0-5 SEEN Urine Bacteria 1+ Hyaline Casts 5-10 SEEN Urine Mucus 0 SEEN Rhythm Strip Rhythm Strip: Sinus Rhythm Rate: 60 Ectopy: None EKG Initial EKG: Attestation: I personally reviewed and interpreted this EKG as follows: Interpretation: Sinus Rhythm Comments: Normal sinus rhythm at a rate of 60 bpm Normal axis Normal intervals Normal ST segments Discharge Plan Triage Chief Complaint: Back Other Complaint: Nausea/Vomiting ED Provider: Lacy Rodriguez Dx/Rx/DC Orders Clinical Impression: Abdominal pain, Low back pain, Nausea & vomiting Instructions: ED Abdominal Pain Unkn Cause Fem, ED GERD (Adult) Prescriptions: New sucralfate [Carafate] 1 gram tablet 1 g PO TID PRN (Reason: abdominal discomfort) Qty: 45 0RF metoclopramide HCl [Reglan] 10 mg tablet 10 mg PO Q6H PRN (Reason: nausea and vomiting) Qty: 20 0RF No Action pantoprazole 40 mg tablet,delayed release (DR/EC) 40 mg PO DAILY Qty: 30 1RF pantoprazole 40 mg tablet,delayed release (DR/EC) 40 mg PO DAILY Qty: 30 1RF Primary Care Provider: Care Physician,No Primary Referrals: FriendAydin, DO [Med Staff - Active Staff] - As soon as possible (as scheduled ) Care Physician,No Primary [Primary Care Provider] - Activity Restrictions/Additional Instructions: Your lab work was very reassuring today. I do not think additional imaging is needed. Please follow-up with GI as scheduled. You been prescribed additional medicine to help with your symptoms. Continue taking your pantoprazole. Disposition Disposition: Home, Self Care Discharge Date/Time: 12/05/23 13:27
[2023-12-05] MEDS: Morphine 4 MG/ML Syringe IV (11:22)
[2023-12-05] MEDS: 0.9% Normal Saline (1000mL) 1,000 ML 1000 ML IV (11:22)
[2023-12-05] MEDS: Metoclopramide 10 MG/2 ML Vial IV (11:22)
[2023-12-05 11:31] LABS: Mucous, Urine 0 SEEN /hpf (<or=2+)
[2023-12-05 11:33] LABS: Color, Urine Yellow (Yellow); Glucose, Dipstick Normal (Normal); Ketone-Dipstick 15 mg/dl (Negative); Leukocyte Esterase-Dipstick 25 /ul (Negative); Nitrite-Dipstick Negative (Negative); Occult Blood-Urine 10 /ul (Negative); Protein-Dipstick 30 mg/dl (Negative); Urine Bilirubin Dipstick Negative (Negative); Urine Clarity Sl. Cloudy (Clear); Urine Urobilinogen 4 mg/dl (Normal)
[2023-12-05 11:41] LABS: Absolute Lymphocyte Count 1.07 X10^3/uL (0.83-4.51); Absolute Neutrophil Count 3.7 X10^3/uL (2.0-7.7); Basophil# 0.02 X10^3/uL; Basophil% 0.4 % (0-1); Eosinophil# 0.02 X10^3/uL; Eosinophils% 0.4 % (0-5); Hematocrit 39.7 % (37-47); Hemoglobin 12.9 g/dL (12.0-15.0); Lymphocyte # 1.07 X10^3/ul (0.83-4.51); Lymphocyte % 21.7 % (19-41); Mean Corp Hgb Conc 32.5 g/dL (32-36); Mean Corpuscular Hgb 28.5 pg (27.0-32.0); Mean Corpuscular Volume 87.8 fL (81-99); Mean Platelet Vol. 10.2 fl (6.2-12.0); Monocyte# 0.15 X10^3/uL; NRBC Flagged by Analyzer 0 % (0-5); Neutrophil # 3.68 X10^3/uL (2.7-7.7); Neutrophil % 74.5 % (47-70); Platelet Count 264 K/mm3 (150-450); RBC Distribution Width SD 41.5 fl (35.1-43.9); Red Blood Count 4.52 M/mm3 (4.2-5.4); White Blood Count 4.9 K/mm3 (4.4-11.0)
[2023-12-05 11:41] LABS: Bacteria 1+ /hpf (None Seen); Hyaline Cast 5-10 SEEN /lpf (0-5); Red Blood Cells-Urine 0-5 SEEN /hpf (0-5); Squamous Epithelial Cells - UA 0-5 SEEN /hpf (5-10); White Blood Cells 0-5 SEEN /hpf (0-5)
[2023-12-05 11:48] LABS: AST(SGOT) 31 U/L (15-37); Alanine Aminotransfer ALT/SGPT 25 U/L (13-56); Albumin, Serum 4.1 g/dL (3.2-5.0); Alkaline Phosphatase 83 U/L (45-117); Anion Gap 9 (5-15); BUN 15 mg/dL (7-18); BUN/Creat Ratio 8.5 RATIO (10-20); Calcium,Total 10.1 mg/dL (8.5-10.1); Chloride 110 mmol/L (98-107); Creatinine, Serum 1.77 mg/dL (0.55-1.02); EST Glomerular Filtration Rate 32 mL/min (>60); Est Glom Filt Rate - Afr Amer 39 mL/min (>60); Estimated Creatinine Clearance 35.52 ml/min; Globulin 4.1 g/dL (2.2-4.2); Glucose 195 mg/dL (74-106); Lipase 19 U/L (13-75); Potassium 3.7 mmol/L (3.5-5.1); Protein, Total 8.2 g/dL (6.4-8.2); Sodium Level 144 mmol/L (136-145)
[2023-12-05 12:27] VITALS: BP 103/77; PULSE 72; RESP 18; O2SAT 96
[2023-12-05] MEDS: Pantoprazole Sodium 40 MG in 0.9% Normal Saline (100mL MB+) 100 ML 330 MG IV (12:27)
[2023-12-05] MEDS: Mag Hydrox/Al Hydrox/Simeth 30 ML UDC PO (13:25)
[2023-12-05 13:26] VITALS: BP 116/81; PULSE 79; RESP 20; TEMP 36.9; O2SAT 99
== END 2023-12-05 13:27 | disposition home or self-care (01) ==
PROVIDERS: Emergency Provider Emergency Medicine; Visit Provider Emergency Medicine
DX: M54.50 Low back pain, unspecified (principal); R10.9 Unspecified abdominal pain; K29.70 Gastritis, unspecified, without bleeding; F17.210 Nicotine dependence, cigarettes, uncomplicated; K21.9 Gastro-esophageal reflux disease without esophagitis; Z79.899 Other long term (current) drug therapy; R11.2 Nausea with vomiting, unspecified
CPT/HCPCS: 80053; 81001; 83690; 85025; 93005; 96361; 96365; 96375; 99285; J7030; A4216

== ENCOUNTER → 2023-12-07 | Outpatient (CLI) | payer MEDICAID, SELFPAY ==
[2023-12-07 13:10] LABS: ALB/GLOB Ratio 1.2 RATIO (0.9-2.4); AST(SGOT) 38 U/L (15-37); Alanine Aminotransfer ALT/SGPT 27 U/L (13-56); Albumin, Serum 4.3 g/dL (3.2-5.0); Alkaline Phosphatase 74 U/L (45-117); Anion Gap 10 (5-15); BUN 24 mg/dL (7-18); BUN/Creat Ratio 9.6 RATIO (10-20); Calcium,Total 9.9 mg/dL (8.5-10.1); Chloride 109 mmol/L (98-107); Cholesterol 240 mg/dL (200); EST Glomerular Filtration Rate 22 mL/min (>60); Est Glom Filt Rate - Afr Amer 26 mL/min (>60); Globulin 3.7 g/dL (2.2-4.2); Glucose 105 mg/dL (74-106); High Density Lipoprotein 63 mg/dL; Potassium 3.8 mmol/L (3.5-5.1); Sodium Level 140 mmol/L (136-145); Triglycerides 81 mg/dL; Very Low Density Lipoprotein 16 mg/dL (5-40)
== END | disposition home or self-care (01) ==
LOC: BIMLAB 11:20
PROVIDERS: PCP Internal Medicine; Referring Provider Internal Medicine; Visit Provider Internal Medicine
DX: Z13.6 Encounter for screening for cardiovascular disorders (principal); K21.9 Gastro-esophageal reflux disease without esophagitis
CPT/HCPCS: 36415; 80053; 80061

== ENCOUNTER → 2024-02-01 | Outpatient (CLI) | payer MEDICAID, SELFPAY ==
--- NOTE | 2024-02-01 09:04 | US_ITS ---
STUDY: ABDOMINAL ULTRASOUND - RIGHT UPPER QUADRANT REASON FOR VISIT: Female, 53 years old Abdominal pressure, N/V. Dizziness TECHNIQUE: Ultrasound evaluation of the right upper quadrant was performed with real-time and static duff-scale imaging. TECHNICAL QUALITY: Adequate. COMPARISON: None. FINDINGS: Liver: The liver measures 13.3 cm. There is increased echogenicity consistent with fatty infiltration. The bile ducts are within normal limits. There is hepatic color flow. The direction of portal flow is hepatopetal. There is no demonstrated mass lesion. Gallbladder: Normal distended gallbladder. The gallbladder wall measures 2.1 mm. There is a negative sonographic Blackmon''s sign. There is no pericholecystic fluid. There are no gallstones. Common Bile Duct (C.B.D.): The common bile duct measures 3.6 mm. Pancreas: Normal size of the head, body and tail of the pancreas. There is normal echogenicity of the pancreas. There is no demonstrated pancreatic mass or cyst. Right Kidney: Normal size of the right kidney. The right kidney measures 8.9 cm x 3.7 cm x 3.3 cm. Normal renal cortex. The right cortex measures 1.1 cm. There is no demonstrated renal mass or cyst. There is no right hydronephrosis. US/Gallbladder IMPRESSION: Fatty infiltration of the liver. Electronically Signed: Abhishek Louis MD at 14:01 EDT ,
== END | disposition home or self-care (01) ==
PROVIDERS: PCP Internal Medicine; Referring Provider Surgery; Visit Provider Surgery
DX: R10.11 Right upper quadrant pain (principal)
CPT/HCPCS: 76705

== ENCOUNTER → 2024-03-09 | Outpatient (CLI) | payer MEDICAID, SELFPAY ==
--- NOTE | 2024-03-09 12:03 | BI_ITS ---
MAMMOGRAPHY - BILATERAL SCREENING REASON FOR EXAM: Female, 53 years old. Routine annual screening examination. PERTINENT HISTORY: Non-contributory. TECHNIQUE: Digital bilateral breast sourav (3D mammographic acquisition) in the CC and MLO projections. 2-D mediolateral oblique (MLO) and craniocaudad (CC) views of both breasts were obtained. CAD: Full Field Digital Mammography with Computer Added Detection was performed. COMPARISON: None. Baseline examination. FINDINGS: Breast Composition: The breasts are almost entirely fatty. There are no dominant masses or suspicious calcifications. No other significant abnormalities are identified. BI/SCRN MAMM (CAD)W/SOURAV BILAT IMPRESSION: Negative screening mammogram. Yearly followup mammogram recommended. (A) ASSESSMENT CATEGORY: BIRADS Category 1: Negative. A letter regarding these results will be sent to the patient by the facility within 30 days. Approximately 10% of breast cancers are not detected by mammography. A normal mammogram should not delay biopsy of a clinically suspicious abnormality. [id number] Electronically Signed: Abhishek Louis MD at 13:00 EDT ,
== END | disposition home or self-care (01) ==
PROVIDERS: PCP Internal Medicine; Referring Provider Internal Medicine; Visit Provider Internal Medicine
DX: Z12.31 Encounter for screening mammogram for malignant neoplasm of breast (principal)
CPT/HCPCS: 77063; 77067

== ENCOUNTER → 2024-05-30 | Outpatient (CLI) | payer MEDICAID, SELFPAY ==
[2024-05-30 12:04] LABS: Absolute Lymphocyte Count 2.24 X10^3/uL (0.83-4.51); Absolute Neutrophil Count 3.8 X10^3/uL (2.0-7.7); Basophil# 0.02 X10^3/uL; Basophil% 0.3 % (0-1); Eosinophils% 1.5 % (0-5); Hematocrit 37.6 % (37-47); Hemoglobin 11.8 g/dL (12.0-15.0); Lymphocyte # 2.24 X10^3/ul (0.83-4.51); Lymphocyte % 33.4 % (19-41); Mean Corp Hgb Conc 31.4 g/dL (32-36); Mean Corpuscular Hgb 29.1 pg (27.0-32.0); Mean Corpuscular Volume 92.6 fL (81-99); Mean Platelet Vol. 10.2 fl (6.2-12.0); Monocyte# 0.49 X10^3/uL; Monocyte% 7.3 % (0-10); NRBC Flagged by Analyzer 0 % (0-5); Neutrophil # 3.84 X10^3/uL (2.7-7.7); Neutrophil % 57.4 % (47-70); Platelet Count 198 K/mm3 (150-450); RBC Distribution Width CV 13.3 % (11.6-14.6); RBC Distribution Width SD 45.5 fl (35.1-43.9); Red Blood Count 4.06 M/mm3 (4.2-5.4); White Blood Count 6.7 K/mm3 (4.4-11.0)
[2024-05-30 12:27] LABS: AST(SGOT) 16 U/L (15-37); Alanine Aminotransfer ALT/SGPT 20 U/L (13-56); Albumin, Serum 3.5 g/dL (3.2-5.0); Alkaline Phosphatase 93 U/L (45-117); Anion Gap 4 (5-15); BUN 18 mg/dL (7-18); BUN/Creat Ratio 15.4 RATIO (10-20); Calcium,Total 9.4 mg/dL (8.5-10.1); Chloride 110 mmol/L (98-107); Cholesterol 229 mg/dL (200); Creatinine, Serum 1.17 mg/dL (0.55-1.02); EST Glomerular Filtration Rate 52 mL/min (>60); Est Glom Filt Rate - Afr Amer 63 mL/min (>60); Globulin 3.6 g/dL (2.2-4.2); Glucose 130 mg/dL (74-106); High Density Lipoprotein 75 mg/dL; Potassium 4.5 mmol/L (3.5-5.1); Protein, Total 7.1 g/dL (6.4-8.2); Sodium Level 141 mmol/L (136-145); Triglycerides 107 mg/dL; Very Low Density Lipoprotein 21 mg/dL (5-40)
[2024-05-30 12:28] LABS: Hemoglobin A1c 5.7 % (3.8-5.6); Microalbumin,Random Urine 10.9 mg/L (NO RANGE EST.); Microalbumin:Creatinine Ratio 6.8 mg/g CRE (<30 mg/g CRE)
== END | disposition home or self-care (01) ==
LOC: BIMLAB 09:41
PROVIDERS: PCP Internal Medicine; Referring Provider Physician Assistant; Visit Provider Physician Assistant
DX: N18.4 Chronic kidney disease, stage 4 (severe) (principal); R73.03 Prediabetes; E78.5 Hyperlipidemia, unspecified
CPT/HCPCS: 36415; 80053; 80061; 82043; 82570; 83036; 85025

== ENCOUNTER 2024-08-17 17:17 | Emergency (ER) | payer MEDICAID, SELFPAY ==
[2024-08-17 17:18] VITALS: BP 115/81; PULSE 64; RESP 16; TEMP 36.7; O2SAT 100; BMI 27.9
[2024-08-17] MEDS: Penicillin Vk 250 MG Tablet 500 MG PO (20:14)
[2024-08-17] MEDS: Acetaminophen 325 MG Tablet 650 MG PO (20:14)
--- NOTE | 2024-08-17 20:16 | EDS_ITS ---
HPI <Dr. Stanford Starkey DO - Last Filed: 08/17/24 22:23> History of Present Illness Chief Complaint: Dental <GARO [place] - Last Filed: 08/17/24 21:30> Narrative Narrative: Patient presenting today with left lower dental pain she has had over the last week. She does not currently have a dentist. She denies any fevers or chills. Her symptoms are worse with eating. She reports a PMH of CKD. PFSH <Dr. Stanford Starkey DO - Last Filed: 08/17/24 22:23> PFSH Medical History Chronic GERD Home Medications ?Medication ?Instructions ?Recorded ?Last Taken ?Type acetaminophen 325 mg tablet (Pain 650 mg (2 x 325 mg) PO Q6H PRN 08/17/24 Unknown Rx Relief (acetaminophen)) pain 7 days #56 tabs penicillin V potassium 500 mg 500 mg PO 4X/DAY #40 tabs 08/17/24 Unknown Rx tablet Allergy/AdvReac Type Severity Reaction Status Date / Time No Known Allergies Allergy Verified 08/17/24 17:18 Family History Mother Diabetes Father Diabetes Aunt Diabetes Uncle Diabetes Sister Diabetes Surgical History Delivery by section Social History household members: children housing: house current occupational status: unemployed Smoking Status: Current every day smoker tobacco type: cigarettes Electronic Cigarette Use: not used alcohol intake: former substance use type: marijuana what type of physical activity do you participate in: none seatbelt use: always do you feel safe at home: Yes ROS <GARO [place] - Last Filed: 08/17/24 21:30> ROS ED Constitutional Constitutional ED: Denies chills or fever(s) Cardiovascular Cardiovascular: Denies chest pain Respiratory/Chest Respiratory/Chest: Denies dyspnea Gastrointestinal Gastrointestinal: Denies abdominal pain, nausea or vomiting Musculoskeletal Musculoskeletal: Denies arthralgias or myalgias Integumentary Denies rash Neurologic Neurologic: Denies weakness EXAM <Dr. Stanford Starkey DO - Last Filed: 08/17/24 22:23> Physical Exam Const Vital Signs: 08/17/24 17:18 Temperature 98.1 F Temperature Source Oral Pulse Rate 64 Respiratory Rate 16 Blood Pressure 115/81 H Blood Pressure Mean 92 Pulse Ox 100 Oxygen Delivery Method Room Air <GARO [place] - Last Filed: 08/17/24 21:30> Physical Exam Const Vital Signs: 08/17/24 17:18 Temperature 98.1 F Temperature Source Oral Pulse Rate 64 Respiratory Rate 16 Blood Pressure 115/81 H Blood Pressure Mean 92 Pulse Ox 100 Oxygen Delivery Method Room Air Positive well nourished, well developed and no apparent distress General Appearance ED: well developed HEENT Reports normocephalic and head/scalp atraumatic HEENT Narrative: No dental abscess, multiple dental caries, pain to the left mandibular first and second molars, no trismus, no sublingual swelling Mouth ED: Yes moist mucous membranes normal Eyes PERRL and EOMs intact bilaterally Neck full ROM and supple Chest Wall inspection of chest normal Resp normal respiratory effort and clear to auscultation bilaterally Cardio regular rate and regular rhythm Back/Spine normal ROM and normal to inspection Extremity normal to inspection and full ROM Neuro oriented x3, CN's II-XII intact bilaterally, moves all extremities, no focal motor deficits and no sensory deficits noted Sensorium / Orientation: awake and alert Psych mental status grossly normal and thought process normal Skin no rashes or lesions noted and no wounds MDM <Dr. Stanford Starkey, - Last Filed: 08/17/24 22:23> MDM Treatment and Re-Evaluation Narrative: I have personally performed a face to face assessment of the patient and have reviewed the YG Note. I performed a substantive portion of the visit including all aspects of the following. My villavicencio findings include: History: Patient presents with dental pain that has been getting worse over the past week. Patient states it is gradually getting worse. Patient describes it as stabbing. Patient states it is over the left upper and lower molars. Patient states it is worse with eating. Patient states she has been using hot steam to her face and which has been helping. Patient states she feels some swelling in her jaw and face. Patient admits to some hot and cold sensitivity. Patient denies any fevers or chills. Exam: Vital signs are stable. Patient is afebrile. Patient is in no acute distress. Oral mucosa is pink and moist. Neck is supple. Trachea is midline. There is no JVD. There are dental caries noted over the left lower second molar and left upper first molar. There is tenderness to percussion over these teeth. There is some mild gingival edema. There is no fluctuance or evidence of any abscess. There is no sublingual edema. There is no evidence of Yoel's angina. There is no lymphadenopathy noted. Medical Decision Making: Patient was advised that these are infected dental caries. Patient was given a dose of Pen-Vee K here. Patient was given a prescription for Pen-Vee K. Patient was also given a dose of Tylenol here. Patient was instructed to continue Tylenol as needed for pain. Patient was instructed to follow-up with a dentist in 5 to 7 days. Patient was instructed to return if worse in any way. Patient understood and was agreeable with the plan. All questions were answered. <GARO [place] - Last Filed: 08/17/24 21:30> [facility] Narrative Medical decision making narrative: Patient presenting with dental pain she has had over the past week. She has multiple dental caries with pain to the left mandibular and maxillary first and second molars. No surrounding dental abscess, no evidence of Ludewig's angina. She is otherwise nontoxic-appearing and in no acute distress, her vitals are unremarkable. I will start her on penicillin with first dose here, she was given Tylenol for pain. I have given her a dental referral sheet. Return instructions were discussed and patient discharged home in stable condition. Discharge Plan Triage Chief Complaint: Dental ED Midlevel Provider: Marge Moore ED Provider: Stanford Starkey Dx/Rx/DC Orders Clinical Impression: Pain, dental, Infected dental caries Instructions: ED Dental Pain Prescriptions: New penicillin V potassium 500 mg tablet 500 mg PO 4X/DAY Qty: 40 0RF acetaminophen [Pain Relief (acetaminophen)] 325 mg tablet 650 mg PO Q6H PRN (Reason: pain) 7 Days Qty: 56 0RF Primary Care Provider: Heather Farrell Referrals: Heather Farrell MD [Primary Care Provider] - Activity Restrictions/Additional Instructions: Take Tylenol for pain as needed. Follow-up with a dentist and return for any other concerns. Print Language: Mongolian Disposition Disposition: Home, Self Care Discharge Date/Time: 08/17/24 20:20
== END 2024-08-17 20:20 | disposition home or self-care (01) ==
PROVIDERS: Emergency Provider Emergency Medicine; PCP Internal Medicine; Visit Provider Emergency Medicine
DX: K08.89 Other specified disorders of teeth and supporting structures (principal); F17.210 Nicotine dependence, cigarettes, uncomplicated; K02.9 Dental caries, unspecified; K21.9 Gastro-esophageal reflux disease without esophagitis; N18.9 Chronic kidney disease, unspecified
CPT/HCPCS: 99283

== ENCOUNTER → 2024-11-07 | Outpatient (CLI) | payer MEDICAID, SELFPAY ==
[2024-11-07 15:17] LABS: Absolute Lymphocyte Count 2.01 X10^3/uL (0.83-4.51); Absolute Neutrophil Count 1.7 X10^3/uL (2.0-7.7); Basophil# 0.02 X10^3/uL; Basophil% 0.5 % (0-1); Eosinophil# 0.05 X10^3/uL; Eosinophils% 1.2 % (0-5); Hematocrit 35.6 % (37-47); Hemoglobin 11.7 g/dL (12.0-15.0); Lymphocyte # 2.01 X10^3/ul (0.83-4.51); Mean Corp Hgb Conc 32.9 g/dL (32-36); Mean Corpuscular Volume 88.1 fL (81-99); Mean Platelet Vol. 9.4 fl (6.2-12.0); Monocyte# 0.33 X10^3/uL; NRBC Flagged by Analyzer 0 % (0-5); Neutrophil # 1.68 X10^3/uL (2.7-7.7); Neutrophil % 41.1 % (47-70); Platelet Count 216 K/mm3 (150-450); RBC Distribution Width CV 12.7 % (11.6-14.6); RBC Distribution Width SD 41.1 fl (35.1-43.9); Red Blood Count 4.04 M/mm3 (4.2-5.4); White Blood Count 4.1 K/mm3 (4.4-11.0)
[2024-11-07 17:54] LABS: ALB/GLOB Ratio 1.3 RATIO (0.9-2.4); AST(SGOT) 31 U/L (<=31); Alanine Aminotransfer ALT/SGPT 36 U/L (<=34); Albumin, Serum 3.8 g/dL (3.5-5.0); Alkaline Phosphatase 69 U/L (35-104); Anion Gap 11 (5-15); BUN 21 mg/dL (4-19); BUN/Creat Ratio 18.4 RATIO (10-20); Calcium,Total 9.6 mg/dL (7.6-11.0); Chloride 107 mmol/L (98-108); Creatinine, Serum 1.13 mg/dL (0.70-1.20); EST Glomerular Filtration Rate 59 (>60); Globulin 2.9 g/dL (2.2-4.2); Glucose 94 mg/dL (70-99); Potassium 4.6 mmol/L (3.3-5.1); Protein, Total 6.8 g/dL (5.9-8.4); Sodium Level 140 mmol/L (133-145); Total Bilirubin 0.42 mg/dL (0.00-1.30)
[2024-11-07 17:57] LABS: Hemoglobin A1c 5.9 % (<=5.6)
== END | disposition home or self-care (01) ==
LOC: BIMLAB 14:20
PROVIDERS: PCP Internal Medicine; Referring Provider Internal Medicine; Visit Provider Internal Medicine
DX: N18.4 Chronic kidney disease, stage 4 (severe) (principal); R73.03 Prediabetes
CPT/HCPCS: 36415; 80053; 83036; 85025